=== PATIENT | female | born 1935 ===

== ENCOUNTER 2017-10-27 13:44 | Inpatient (IN) | payer MEDICARE, MEDICAID ==
[2017-10-27 14:32] LABS: BASO # 0.1 K/uL (0.0-0.2); EOS # 0.4 K/uL (0.0-0.7); EOS % 5.8 % (0.0-4.0); HEMOGLOBIN 11.5 g/dL (11.0-16.0); LYMPH # 1.8 K/uL (1.0-4.3); LYMPH % 26.7 % (20.0-40.0); MEAN CELL VOLUME 83.6 fL (81.0-99.0); MEAN CORPUSCULAR HEMOGLOBIN 28.6 pg (27.0-31.0); MEAN CORPUSCULAR HGB CONC 34.3 g/dL (33.0-37.0); MEAN PLATELET VOLUME 7.8 fL (7.2-11.7); MONO # 0.6 K/uL (0.0-0.8); MONO % 9.5 % (0.0-10.0); NEUT # 3.8 K/uL (1.8-7.0); RBC 4.01 Mil/uL (3.80-5.20); RED CELL DISTRIBUTION WIDTH 15.1 % (11.5-14.5); WHITE BLOOD COUNT 6.7 K/uL (4.8-10.8)
[2017-10-27 14:39] LABS: PROTHROMBIN TIME 10.9 SECONDS (9.7-12.2)
[2017-10-27 14:53] LABS: ALB/GLOB RATIO 1.1 (1.0-2.1); ALBUMIN 3.9 g/dL (3.5-5.0); ALT/SGPT 8 U/L (9-52); AST/SGOT 38 U/L (14-36); BLOOD UREA NITROGEN 17 mg/dL (7-17); CALCIUM 9.2 mg/dl (8.6-10.4); GFR AFRICAN-AMERICAN 48; GFR NON-AFRICAN AMERICAN 39
--- NOTE | 2017-10-27 15:01 | RAD ---
PROCEDURE: CHEST RADIOGRAPH, 1 VIEW HISTORY: SOB COMPARISON: None available. FINDINGS: LUNGS: Clear. PLEURA: No pneumothorax or pleural fluid seen. CARDIOVASCULAR: Cardiomegaly. No evidence of acute, significant cardiovascular disease. OSSEOUS STRUCTURES: No significant abnormalities. VISUALIZED UPPER ABDOMEN: Normal. OTHER FINDINGS: None. IMPRESSION: No active pulmonary disease.
[2017-10-27 15:02] LABS: B-TYPE NATRIURETIC PEPTIDE 271 pg/mL (0-900); CK-MB 0.93 ng/mL (0.0-3.38)
[2017-10-27] MEDS ORDERED: Vancomycin 1 GM 1 GM/250 ML BAG IV STA ×2 (15:57→16:23)
[2017-10-27] MEDS ORDERED: Clindamycin 600mg/50ml NS 600 MG/50 ML BAG IVPB ONE (16:16)
[2017-10-27] MEDS ORDERED: Vancomycin 1 gm/NS 200 ml 1 GM/200 ML BAG IVPB STA (17:08)
--- NOTE | 2017-10-27 18:10 | C.PDOC ---
History Of Present Illness 81-year-old female presents to the emergency department complaining of worsening lower extremity swelling, redness, and pain for the past 1 week. Patient is also complaining of shortness of breath. She denies cough or fever, chest pain, nausea/vomiting, abdominal pain, palpitations, or any other associated symptoms. Time Seen by Provider: 10/27/17 13:52 Chief Complaint (Nursing): Lower Extremity Problem/Injury History Per: Patient History/Exam Limitations: no limitations Onset/Duration Of Symptoms: Days (1 week ) Current Symptoms Are (Timing): Still Present Severity: Mild Past Medical History Reviewed: Historical Data, Nursing Documentation, Vital Signs Vital Signs: Last Vital Signs Temp 97.8 F 10/31/17 08:27 Pulse 71 10/31/17 08:27 Resp 20 10/31/17 08:27 BP 138/75 10/31/17 10:31 Pulse Ox 99 11/01/17 13:49 - Medical History PMH: Asthma, HTN, Hypercholesterolemia, Hypothyroidism Family History: States: No Known Family Hx - Social History Hx Alcohol Use: No Hx Substance Use: No Review Of Systems Constitutional: Negative for: Fever, Chills Cardiovascular: Negative for: Chest Pain, Palpitations Respiratory: Positive for: Shortness of Breath (occasional ). Negative for: Cough Gastrointestinal: Negative for: Nausea, Vomiting, Abdominal Pain, Diarrhea Musculoskeletal: Positive for: Other (leg swelling and redness) Neurological: Negative for: Weakness, Numbness Physical Exam - Physical Exam Appears: Well, Non-toxic, No Acute Distress Skin: Normal Color, Warm, Dry, No Rash Head: Atraumatic Oral Mucosa: Moist Neck: Normal, Normal ROM Cardiovascular: Rhythm Regular Respiratory: Normal Breath Sounds, No Rales, No Rhonchi, No Wheezing Gastrointestinal/Abdominal: Normal Exam, Bowel Sounds, Soft, No Tenderness, Other (Obese) Extremity: Normal ROM, Pedal Edema (+2 pitting edema B/L LEs), No Calf Tenderness, Capillary Refill (< 2 sec all digits ), No Deformity, Other ( diffuse erythema to B/L lower extremities) Pulses: Left Dorsalis Pedis: Normal, Right Dorsalis Pedis: Normal Neurological/Psych: Oriented x3, Normal Sensation ED Course And Treatment - Laboratory Results Result Diagrams: 10/30/17 06:50 10/30/17 06:52 O2 Sat by Pulse Oximetry: 99 (RA ) Pulse Ox Interpretation: Normal Progress Note: Bloodwork, CXR ordered and reviewed. Patient given PO Clindamycin (PCN allergic). 16:20--Patient now she has been on two courses of different antibiotics recently, including Clindamycin for the past four days. IV Vancomycin ordered. 18:10--Spoke with hospitalist, who agrees with admission for cellulitis that failed outpatient antibiotics. - Physician Consult Information Physician Contacted: Fredo Taylor Disposition - Disposition Disposition: HOSPITALIZED Disposition Time: 18:14 Condition: STABLE - Clinical Impression Clinical Impression: Cellulitis, leg, Peripheral edema, Failure of outpatient treatment - Scribe Statement The provider has reviewed the documentation as recorded by the Scribe (Baljit Montes) All medical record entries made by the Scribe were at my direction and personally dictated by me. I have reviewed the chart and agree that the record accurately reflects my personal performance of the history, physical exam, medical decision making, and the department course for this patient. I have also personally directed, reviewed, and agree with the discharge instructions and disposition. Decision To Admit - Pt Status Changed To: Hospital Disposition Of: Inpatient - Admit Certification Admit to Inpatient:: After my assessment, the patient will require hospitalization for at least two midnights. This is because of the severity of symptoms shown, intensity of services needed, and/or the medical risk in this patient being treated as an outpatient. - InPatient: Physician Admission Certification: I certify that this patient requires 2 or more midnights of care for the following reason:: see notes - . Bed Request Type: Regular Admitting Physician: Fredo Taylor Patient Diagnosis: Cellulitis, leg, Peripheral edema, Failure of outpatient treatment
[2017-10-27] MEDS ORDERED: Albuterol-Ipratrop 3 mg / 0.5 (3 ml) UD INH STA (19:04)
[2017-10-27] MEDS ORDERED: Albuterol-Ipratrop 3 mg / 0.5 (3 ml) UD ONE (19:31)
--- NOTE | 2017-10-27 20:12 | CP.PCM.HP ---
<DaisyTiffanie Jalen - Last Filed: 10/27/17 20:41> History of Present Illness - History of Present Illness History of Present Illness: CC: bilateral lower extremity swelling and pain HPI: Patient is an 81 year old female with PMHx of asthma, HTN, hypothyroidism, kidney infections, mini stroke, and cellulitis presents today for worsening lower extremity edema, erythema, and pain. Patient says the swelling started 4 weeks ago and has progressively gotten worse. Patient went to [facility] about 1 week ago and was given antibiotics (does not remember the name ) which did not help. Patient went to her PMD, Dr. Hall on October 22 and was given Clindamycin 300mg po TID for 10 days which she said was not helping. Patient's legs were causing her so much pain and because they were not getting any better she came to the ED. Normally patient can ambulate and do most of her ADLs, but gets help from her daughter whom she lives with. Patient says that the swelling and pain in her legs did not change how much she could ambulate. Patient also admits to shortness of breath which she says is chronic for her. Normally she uses her Ventolin inhaler about 3 times per day and her nebulizer treatments twice a day. Patient says she sleeps on 2 pillows at night. Patient denies having a cough. Patient says she is short of breath even at rest. Patient admits to diffuse abdominal pain. Patient usually wears a diaper at home and says she gets kidney infections often. Patient denies any fevers, chills, headaches, chest pain, nausea, vomiting, diarrhea or constipation. PMD: Dr. Felice Hall Allergies: Penicillin PMHx: asthma, HTN, hypothyroidism, kidney infections, TIA, and cellulitis Psurg: b/l knee surgeries in her 20s??, left fourth digit injury at age 60 Famhx: mom of [place] at age 30 Meds: Ventolin inhaler, Nebulizer BID, Synthroid 50mcg po daily, Clopidogrel 75mg, Amlodipine 10mg po daily, Valsartan/ HCTZ 160-12mg po daily, Gabapentin 100mg po TID Social: quit smoking 30 years ago, smoked 5 cigarettes per day for 10 years, denies alcohol. drugs lives with daughter Present on Admission - Present on Admission Any Indicators Present on Admission: No History of DVT/PE: No History of Uncontrolled Diabetes: No Urinary Catheter: No Decubitus Ulcer Present: No Review of Systems - Constitutional Constitutional: absent: Chills, Fever - EENT Eyes: absent: Blurred Vision, Change in Vision Nose/Mouth/Throat: absent: Sore Throat - Cardiovascular Cardiovascular: Dyspnea, Dyspnea on Exertion, Leg Edema, Pedal Edema. absent: Chest Pain, Palpitations - Respiratory Respiratory: Dyspnea, Dyspnea on Exertion. absent: Cough, Wheezing - Gastrointestinal Gastrointestinal: Abdominal Pain. absent: Constipation, Diarrhea, Nausea, Vomiting - Genitourinary Genitourinary: Urinary Incontinence - Musculoskeletal Musculoskeletal: Myalgias. absent: Numbness, Tingling - Integumentary Integumentary: Erythema, Skin Pain Past Patient History - Past Social History Smoking Status: Former Smoker - CARDIAC Hx Hypercholesterolemia: Yes Hx Hypertension: Yes - PULMONARY Hx Asthma: Yes - ENDOCRINE/METABOLIC Hx Hypothyroidism: Yes - PSYCHIATRIC Hx Substance Use: No - SURGICAL HISTORY Other/Comment: bilateral knee sx. left hand sx - ANESTHESIA Hx Anesthesia: Yes Hx Anesthesia Reactions: No Meds Allergies/Adverse Reactions: Allergies Allergy/AdvReac Type Severity Reaction Status Date / Time Penicillins Allergy RASH Verified 10/27/17 14:12 Physical Exam - Constitutional Appears: Non-toxic, No Acute Distress - Head Exam Head Exam: ATRAUMATIC, NORMAL INSPECTION, NORMOCEPHALIC - Eye Exam Eye Exam: EOMI, Normal appearance - ENT Exam ENT Exam: Mucous Membranes Moist - Respiratory Exam Respiratory Exam: Decreased Breath Sounds. absent: NORMAL BREATHING PATTERN ( tachypnea) - Cardiovascular Exam Cardiovascular Exam: REGULAR RHYTHM, RRR - GI/Abdominal Exam GI & Abdominal Exam: Normal Bowel Sounds, Soft, Tenderness (mild diffuse tenderness, no suprapubic tenderness ). absent: Distended - Extremities Exam Extremities exam: Positive for: pedal edema, tenderness Additional comments: b/l non pitting edema up to knee - Back Exam Back exam: absent: CVA tenderness (L), CVA tenderness (R) - Neurological Exam Neurological exam: Alert, Oriented x3 - Psychiatric Exam Psychiatric exam: Normal Affect, Normal Mood - Skin Skin Exam: Erythema, Warm Results - Vital Signs Recent Vital Signs: Last Vital Signs Temp 98.5 F 10/27/17 14:03 Pulse 74 10/27/17 19:21 Resp 16 10/27/17 19:21 BP 110/42 L 10/27/17 19:21 Pulse Ox 100 10/27/17 19:21 - Labs Result Diagrams: 10/27/17 14:28 10/27/17 14:28 Labs: Laboratory Results - last 24 hr 10/27/17 10/27/17 10/27/17 14:28 14:28 14:28 WBC 6.7 RBC 4.01 Hgb 11.5 Hct 33.5 L MCV 83.6 MCH 28.6 MCHC 34.3 RDW 15.1 H Plt Count 242 MPV 7.8 Neut % (Auto) 57.0 Lymph % (Auto) 26.7 [place] % (Auto) 9.5 Eos % (Auto) 5.8 H Baso % (Auto) 1.0 Neut # (Auto) 3.8 Lymph # (Auto) 1.8 [place] # (Auto) 0.6 Eos # (Auto) 0.4 Baso # (Auto) 0.1 PT 10.9 INR 1.0 APTT 33 Sodium 143 Potassium 4.6 Chloride 108 H Carbon Dioxide 25 Anion Gap 15 BUN 17 Creatinine 1.3 H Est GFR ( Amer) 48 Est GFR (Non-Af Amer) 39 Random Glucose 106 H Calcium 9.2 Total Bilirubin 0.7 AST 38 H ALT 8 L Alkaline Phosphatase 105 Total Creatine Kinase 74 CK-MB (Mass) 0.93 Troponin I < 0.0120 NT-Pro-B Natriuret Pep 271 Total Protein 7.3 Albumin 3.9 Globulin 3.4 Albumin/Globulin Ratio 1.1 Assessment & Plan - Assessment and Plan (Free Text) Assessment: 1. B/L LE cellulitis -Vanco 1gm q12h, trough 30min before thurs morning dose -Clinda 600mg ivpb q8h -Florastor po BID -outline cellulitis on legs -no SCDs until dvt ruled out -ID consult, Dr. Maher, help appreciated 2. Shortness of breath -EKG -Echo-- cardiomegaly on chest xray -Duonebs q6h prn -ABG -D- dimer 3. HTN -hypotensive on admission -hold home meds 4. Hypothyroidism -continue Synthroid 50mcg po daily -free T4 + TSH 5. ELISE on CKD -UA + UC -renally dose meds 6. Hx TIA -continue Clopidogrel 75mg po daily 7. Asthma -not in an acute exacerbation -portable cxray: no active disease, poor inspiratory effort -Duonebs q6h prn 8. Hx kidney infections - No CVA tenderness -UA + UC 9. Morbid Obesity -TSH, Free T4 -Lipid panel -HgA1c 10. Prophylaxis -Hold SCDs -Heparin 5000u sc q12h -PT/OT -no gi propylaxis indicated -Heart healthy low sodium diet <Lashon Duong V - Last Filed: 10/28/17 07:23> Results - Vital Signs Recent Vital Signs: Last Vital Signs Temp 97.6 F 10/28/17 04:00 Pulse 85 10/28/17 04:31 Resp 20 10/28/17 04:00 BP 129/82 10/28/17 04:00 Pulse Ox 96 10/28/17 04:00 - Labs Result Diagrams: 10/27/17 14:28 10/27/17 14:28 Labs: Laboratory Results - last 24 hr 10/27/17 10/27/17 10/27/17 14:28 14:28 14:28 WBC 6.7 RBC 4.01 Hgb 11.5 Hct 33.5 L MCV 83.6 MCH 28.6 MCHC 34.3 RDW 15.1 H Plt Count 242 MPV 7.8 Neut % (Auto) 57.0 Lymph % (Auto) 26.7 [place] % (Auto) 9.5 Eos % (Auto) 5.8 H Baso % (Auto) 1.0 Neut # (Auto) 3.8 Lymph # (Auto) 1.8 [place] # (Auto) 0.6 Eos # (Auto) 0.4 Baso # (Auto) 0.1 PT 10.9 INR 1.0 APTT 33 D-Dimer, Quantitative Puncture Site pCO2 pO2 HCO3 ABG pH ABG Total CO2 ABG O2 Saturation ABG Base Excess Mohsen Test ABG Potassium Glucose Lactate Sodium 143 Potassium 4.6 Chloride 108 H Carbon Dioxide 25 Anion Gap 15 BUN 17 Creatinine 1.3 H Est GFR ( Amer) 48 Est GFR (Non-Af Amer) 39 Random Glucose 106 H Calcium 9.2 Total Bilirubin 0.7 AST 38 H ALT 8 L Alkaline Phosphatase 105 Total Creatine Kinase 74 CK-MB (Mass) 0.93 Troponin I < 0.0120 NT-Pro-B Natriuret Pep 271 Total Protein 7.3 Albumin 3.9 Globulin 3.4 Albumin/Globulin Ratio 1.1 Procalcitonin Arterial Blood Potassium Urine Color Urine Clarity Urine pH Ur Specific [place] Urine Protein Urine Glucose (UA) Urine Ketones Urine Blood Urine Nitrate Urine Bilirubin Urine Urobilinogen Ur Leukocyte Esterase Urine WBC (Auto) Urine RBC (Auto) Ur Squamous Epith Cells Urine Bacteria Hyaline Casts 10/27/17 10/27/17 10/27/17 19:31 20:44 20:45 WBC RBC Hgb Hct MCV MCH MCHC RDW Plt Count MPV Neut % (Auto) Lymph % (Auto) [place] % (Auto) Eos % (Auto) Baso % (Auto) Neut # (Auto) Lymph # (Auto) [place] # (Auto) Eos # (Auto) Baso # (Auto) PT INR APTT D-Dimer, Quantitative Puncture Site Rradial pCO2 35 pO2 69 L HCO3 23.8 ABG pH 7.42 ABG Total CO2 23.8 ABG O2 Saturation 96.8 ABG Base Excess -1.3 Mohsen Test Pos ABG Potassium 3.9 Glucose 100 Lactate 0.9 Sodium 143.0 Potassium Chloride 117.0 H Carbon Dioxide Anion Gap BUN Creatinine Est GFR ( Amer) Est GFR (Non-Af Amer) Random Glucose Calcium Total Bilirubin AST ALT Alkaline Phosphatase Total Creatine Kinase CK-MB (Mass) Troponin I NT-Pro-B Natriuret Pep Total Protein Albumin Globulin Albumin/Globulin Ratio Procalcitonin < 0.05 L Arterial Blood Potassium 3.9 Urine Color Yellow Urine Clarity Clear Urine pH 6.0 Ur Specific [place] 1.012 Urine Protein Negative Urine Glucose (UA) Normal Urine Ketones Negative Urine Blood Negative Urine Nitrate Positive H Urine Bilirubin Negative Urine Urobilinogen Normal Ur Leukocyte Esterase Trace Urine WBC (Auto) 12 H Urine RBC (Auto) < 1 Ur Squamous Epith Cells 1 Urine Bacteria Few H Hyaline Casts 3-5 H 10/27/17 20:55 WBC RBC Hgb Hct MCV MCH MCHC RDW Plt Count MPV Neut % (Auto) Lymph % (Auto) [place] % (Auto) Eos % (Auto) Baso % (Auto) Neut # (Auto) Lymph # (Auto) [place] # (Auto) Eos # (Auto) Baso # (Auto) PT INR APTT D-Dimer, Quantitative 719 H Puncture Site pCO2 pO2 HCO3 ABG pH ABG Total CO2 ABG O2 Saturation ABG Base Excess Mohsen Test ABG Potassium Glucose Lactate Sodium Potassium Chloride Carbon Dioxide Anion Gap BUN Creatinine Est GFR ( Amer) Est GFR (Non-Af Amer) Random Glucose Calcium Total Bilirubin AST ALT Alkaline Phosphatase Total Creatine Kinase CK-MB (Mass) Troponin I NT-Pro-B Natriuret Pep Total Protein Albumin Globulin Albumin/Globulin Ratio Procalcitonin Arterial Blood Potassium Urine Color Urine Clarity Urine pH Ur Specific [place] Urine Protein Urine Glucose (UA) Urine Ketones Urine Blood Urine Nitrate Urine Bilirubin Urine Urobilinogen Ur Leukocyte Esterase Urine WBC (Auto) Urine RBC (Auto) Ur Squamous Epith Cells Urine Bacteria Hyaline Casts Attending/Attestation - Attestation I have personally seen and examined this patient.: Yes I have fully participated in the care of the patient.: Yes I have reviewed all pertinent clinical information: Yes Notes (Text): Patient seen, examined, and case discussed with day-time resident. patient seen on 10/27/17 at 6:45PM in Bed 6 ED. Admitting orders and assessment and plan discussed with resident at time of admission. Assessment/Plan 1. B/L LE cellulitis * In the ED, Patient received first dose of Vancomycin and Clindamycin. * Start Vanco 1gm q12h, trough 30min before thurs morning dose * Start Clindamycin 600mg ivpb q8h * Start Florastor po BID * outline cellulitis on legs * Will hold SCDs until dvt ruled out * Will consult ID Dr. Maher, help appreciated 2. Shortness of breath * Will order for EKG; Troponin negative. Probnp not elevated * Will order for Echocardiogram reason:cardiomegaly on chest xray * Duonebs q6h prn shortness of breathe; given stat dose of Duoneb in ED * Order for ABG * Order for D-dimer if positive will order for V/Q scan; patient has acute on chronic kidney disease will not order Ct angio to prevent contrast induced nephropathy 3. HTN * Patient is borderline hypotensive on admission * Will hold home meds 4. Hypothyroidism * continue Synthroid 50mcg po daily * free T4 + TSH in AM 5. Acute on Chronic Kidney Disease * Will order UA + Urine culture * Will renally dose meds 6. Hx TIA * continue Clopidogrel 75mg po daily 7. Hx of Asthma * not in an acute exacerbation * portable cxray: no active disease, poor inspiratory effort * Duonebs q6h prn 8. Hx of kidney infections; hx of urinary incontinence * Patient wears diapers. There is no infection in the intrigenous folds on my exam. negative suprapubic tendernes, negative b/l CVA tenderness * Will check UA + UC 9. Morbid Obesity * Will check TSH, Free T4, Lipid panel, HgA1c 10. Prophylaxis * Hold SCDs until DVT is ruled out * Heparin 5000u sc q12h * PT/OT * no gi propylaxis indicated * Heart healthy low sodium diet
[2017-10-27 20:52] LABS: ABG ALLEN TEST POS; ARTERIAL BLOOD GAS HCO3 23.8 mmol/L (21-28); ARTERIAL BLOOD GAS O2 SAT 96.8 % (95-98); ARTERIAL BLOOD GAS PCO2 35 mm/Hg (35-45); ARTERIAL BLOOD GAS PH 7.42 (7.35-7.45); ARTERIAL BLOOD GAS PO2 69 mm/Hg (80-100); ARTERIAL BLOOD GAS TCO2 23.8 mmol/L (22-28)
[2017-10-27 20:53] LABS: SQUAMOUS EPITHIAL 1 /hpf (0-5); URINE BACTERIA FEW (<OCC); URINE BILIRUBIN NEGATIVE (NEGATIVE); URINE BLOOD NEGATIVE (NEGATIVE); URINE CLARITY Clear (Clear); URINE COLOR Yellow (YELLOW); URINE GLUCOSE (UA) NORMAL (Normal); URINE LEUKOCYTE ESTERASE TRACE Leu/uL (Negative); URINE PROTEIN NEGATIVE (NEGATIVE); URINE UROBILINOGEN NORMAL mg/dL (0.2-1.0)
[2017-10-28] MEDS: Albuterol-Ipratrop 3 mg / 0.5 (3 ml) UD INH PRN ×2 (00:19→07:22)
--- NOTE | 2017-10-28 04:34 | NM ---
EXAM: NM Lung Perfusion and Ventilation Scan CLINICAL HISTORY: 81 years old, female; Signs and symptoms; Other: Le elevated d dimer; Additional info: Le swelling, elevated d dimer TECHNIQUE: Nuclear Medicine ventilation and perfusion images of the lungs were obtained in multiple projections following inhalation of 10.3 mCi of Xenon-133 gas and injection of 4.0 mCi of Tc99m MAA. COMPARISON: No relevant prior studies available. FINDINGS: Ventilation: No defects. Perfusion: Multiple small and moderate peripheral defects. IMPRESSION: 1. High probability for pulmonary embolism. Consider CTA.
[2017-10-28] MEDS ORDERED: Heparin25000 units/250ml 1/2NS 25,000 UNITS/250 ML BAG IV PRN (05:12)
[2017-10-28] MEDS: Heparin25000 units/250ml 1/2NS 25,000 UNITS/250 ML BAG IV PRN ×2 (06:44→22:58)
[2017-10-28 07:37] LABS: BASO # 0.1 K/uL (0.0-0.2); EOS # 0.4 K/uL (0.0-0.7); EOS % 6.9 % (0.0-4.0); LYMPH # 1.9 K/uL (1.0-4.3); LYMPH % 30.6 % (20.0-40.0); MEAN CELL VOLUME 84.3 fL (81.0-99.0); MEAN CORPUSCULAR HEMOGLOBIN 28.7 pg (27.0-31.0); MEAN PLATELET VOLUME 8.3 fL (7.2-11.7); MONO # 0.5 K/uL (0.0-0.8); MONO % 8.8 % (0.0-10.0); NEUT # 3.2 K/uL (1.8-7.0); NEUT % 52.7 % (50.0-75.0); NRBC % 0.1 % (0.0-2.0); RBC 3.84 Mil/uL (3.80-5.20); RED CELL DISTRIBUTION WIDTH 15.3 % (11.5-14.5); WHITE BLOOD COUNT 6.2 K/uL (4.8-10.8)
--- NOTE | 2017-10-28 09:18 | RAD ---
HISTORY: shortness of breath COMPARISON: 10/27/2017 TECHNIQUE: Chest PA and lateral FINDINGS: LUNGS: No active pulmonary disease. PLEURA: No significant pleural effusion identified. No pneumothorax apparent. CARDIOVASCULAR: Normal heart size. Large hiatal hernia with air-fluid level. OSSEOUS STRUCTURES: No significant abnormalities. VISUALIZED UPPER ABDOMEN: Normal. OTHER FINDINGS: None. IMPRESSION: No acute infiltrate. Large hiatal hernia.
[2017-10-28] MEDS ORDERED: Vancomycin 1 gm/NS 200 ml 1 GM/200 ML BAG IVPB SCH (10:00)
[2017-10-28] MEDS ORDERED: Levothyroxine 50 MCG TAB PO SCH (10:00)
[2017-10-28 11:09] LABS: CALCIUM 9.3 mg/dl (8.6-10.4)
[2017-10-28 11:12] LABS: ALB/GLOB RATIO 1.2 (1.0-2.1); ALBUMIN 3.4 g/dL (3.5-5.0)
[2017-10-28] MEDS: Saccharomyces Boulardi 250 mg Cap PO SCH ×2 (11:25→17:56)
--- NOTE | 2017-10-28 13:24 | CP.PCM.PN ---
<Tiffanie Villa - Last Filed: 10/28/17 14:28> Subjective - Date & Time of Evaluation Date of Evaluation: 10/28/17 Time of Evaluation: 07:00 - Subjective Subjective: PGY1- Progress note Patient seen and examined at bedside and in no acute distress. Patient says she is still short of breath, but less so than yesterday. Patient says she still has bilateral lower extremity pain. Patient denies chest pain, palpitations, abdominal pain, nausea, vomiting, constipation, or diarrhea. Objective - Vital Signs/Intake and Output Vital Signs (last 24 hours): Temp Pulse Resp BP Pulse Ox 99.8 F H 74 20 122/84 100 10/28/17 08:30 10/28/17 12:24 10/28/17 08:30 10/28/17 08:30 10/28/17 08:30 Intake and Output: 10/28/17 10/28/17 06:59 18:59 Intake Total 105 Balance 105 - Medications Medications: Current Medications Albuterol/Ipratropium (Duoneb 3 Mg/0.5 Mg (3 Ml) Ud) 3 ml INH RQ6 PRN PRN Reason: Shortness of Breath Last Admin: 10/28/17 07:22 Dose: 3 ml Amlodipine Besylate (Norvasc) 10 mg PO DAILY [facility] Last Admin: 10/28/17 11:24 Dose: 10 mg Clopidogrel Bisulfate (Plavix) 75 mg PO DAILY [facility] Last Admin: 10/28/17 11:24 Dose: 75 mg Gabapentin (Neurontin) 100 mg PO TID [facility] Last Admin: 10/28/17 11:25 Dose: 100 mg Vancomycin/Sodium Chloride (Vancomycin 1 Gm/Ns 200 Ml) 1 gm in 200 mls @ 133.333 mls/hr IVPB Q12H MAR PRN Reason: Protocol Last Admin: 10/28/17 11:43 Dose: 133.333 mls/hr Clindamycin Phosphate 600 mg/ (Sodium Chloride) 54 mls @ 100 mls/hr IVPB Q8H MAR PRN Reason: Protocol Last Admin: 10/28/17 11:23 Dose: 100 mls/hr Heparin Sodium/Sodium Chloride (Heparin 81485 Units/250ml 1/2 Normal Saline) 25 ,000 units in 250 mls @ 19.595 mls/hr IV .[id number] PRN; Protocol; 18 UNITS/KG/HR PRN Reason: PROTOCOL Last Admin: 10/28/17 06:44 Dose: 18 units/kg/hr, 19.595 mls/hr Levothyroxine Sodium (Synthroid) 50 mcg PO 0630 [facility] Pneumococcal Polyvalent Vaccine (Pneumovax 23 Vaccine) 0.5 ml IM .ONCE ONE Stop: 10/29/17 14:01 Saccharomyces Boulardii (Florastor) 250 mg PO BID [facility] Last Admin: 10/28/17 11:25 Dose: 250 mg - Labs Labs: 10/28/17 07:28 10/28/17 07:28 PT 10.9 SECONDS (9.7-12.2) 10/27/17 14:28 INR 1.0 10/27/17 14:28 APTT 33 SECONDS (21-34) 10/27/17 14:28 - Additional Findings Additional findings: - Constitutional Appears: Non-toxic, No Acute Distress - Head Exam Head Exam: ATRAUMATIC, NORMAL INSPECTION, NORMOCEPHALIC - Eye Exam Eye Exam: EOMI, Normal appearance - ENT Exam ENT Exam: Mucous Membranes Moist - Respiratory Exam Respiratory Exam: Decreased Breath Sounds. absent: NORMAL BREATHING PATTERN ( tachypnea) - Cardiovascular Exam Cardiovascular Exam: REGULAR RHYTHM, RRR - GI/Abdominal Exam GI & Abdominal Exam: Normal Bowel Sounds, Soft, Tenderness (mild diffuse tenderness, no suprapubic tenderness ). absent: Distended - Extremities Exam Extremities exam: Positive for: pedal edema, tenderness Additional comments: b/l non pitting edema and erythema up to knee - Back Exam Back exam: absent: CVA tenderness (L), CVA tenderness (R) - Neurological Exam Neurological exam: Alert, Oriented x3 - Psychiatric Exam Psychiatric exam: Normal Affect, Normal Mood - Skin Skin Exam: Erythema, Warm Assessment and Plan - Assessment and Plan (Free Text) Assessment: Pulmonary Embolism V/Q scan: high probability for PE Heparin drip monitor PTT Pulmonology consulted, Dr. Tian, help appreciated B/L LE cellulitis -Vanco 1gm q12h, trough 30min before thurs morning dose -Clinda 600mg ivpb q8h -Florastor po BID -outlined cellulitis on legs -no SCDs until dvt ruled out -ID consult, Dr. Gunnar, help appreciated Shortness of breath 2/2 PE -EKG: NRS -Echo ordered-- cardiomegaly seen on chest xray -Duonebs q6h prn -ABG: pH:7.42, pCO2: 35, pO2: 69 -D- dimer: 719 HTN -hypotensive on admission -hold home meds Hypothyroidism -continue Synthroid 50mcg po daily -free T4: 1.01 -TSH: 7.73 CKD -GFR 43, (spoke to staff at [facility] office, in June GFR 29, BUN 8, Cr: 1.64) -UA: positive nitrates -renally dose meds UTI UA: positive nitrates, 12wbc, few bacteria, 3-5 hyaline casts -on antibiotics for LE cellulitis -f/u Urine Culture Hx TIA -continue Clopidogrel 75mg po daily Asthma -not in an acute exacerbation -portable cxray: no active disease, poor inspiratory effort -Duonebs q6h prn Hx kidney infections - No CVA tenderness - UA: positive nitrates, 12wbc, few bacteria, 3-5 hyaline casts - f/u UC Morbid Obesity -TSH: 7.73, Free T4: 1.23 -Lipid panel: Triglycerides 111, Cholesterol 164, LDL 94, HDL 54 -HgA1C: 5.7 Chronic Low back pain -continue home medication Gabapentin 100mg po TID Prophylaxis -Hold SCDs -Heparin drip -PT/OT -no gi propylaxis indicated -Heart healthy low sodium diet <Lashon Duong V - Last Filed: 10/28/17 17:17> Objective - Vital Signs/Intake and Output Vital Signs (last 24 hours): Temp Pulse Resp BP Pulse Ox 99.8 F H 74 20 122/84 100 10/28/17 08:30 10/28/17 12:24 10/28/17 08:30 10/28/17 08:30 10/28/17 08:30 Intake and Output: 10/28/17 10/28/17 06:59 18:59 Intake Total 702.3 Balance 702.3 - Medications Medications: Current Medications Albuterol/Ipratropium (Duoneb 3 Mg/0.5 Mg (3 Ml) Ud) 3 ml INH RQ6 PRN PRN Reason: Shortness of Breath Last Admin: 10/28/17 07:22 Dose: 3 ml Amlodipine Besylate (Norvasc) 10 mg PO DAILY [facility] Last Admin: 10/28/17 11:24 Dose: 10 mg Clopidogrel Bisulfate (Plavix) 75 mg PO DAILY [facility] Last Admin: 10/28/17 11:24 Dose: 75 mg Gabapentin (Neurontin) 100 mg PO TID [facility] Last Admin: 10/28/17 13:23 Dose: 100 mg Vancomycin/Sodium Chloride (Vancomycin 1 Gm/Ns 200 Ml) 1 gm in 200 mls @ 133.333 mls/hr IVPB Q12H [facility] PRN Reason: Protocol Last Admin: 10/28/17 11:43 Dose: 133.333 mls/hr Clindamycin Phosphate 600 mg/ (Sodium Chloride) 54 mls @ 100 mls/hr IVPB Q8H [facility] PRN Reason: Protocol Last Admin: 10/28/17 11:23 Dose: 100 mls/hr Heparin Sodium/Sodium Chloride (Heparin 67254 Units/250ml 1/2 Normal Saline) 25 ,000 units in 250 mls @ 19.595 mls/hr IV .[id number] PRN; Protocol; 18 UNITS/KG/HR PRN Reason: PROTOCOL Last Titration: 10/28/17 14:40 Dose: 0 units/kg/hr, 0 mls/hr Levothyroxine Sodium (Synthroid) 50 mcg PO 0630 [facility] Methylprednisolone (Solu-Medrol) 40 mg IVP Q8H [facility] Pneumococcal Polyvalent Vaccine (Pneumovax 23 Vaccine) 0.5 ml IM .ONCE ONE Stop: 10/29/17 14:01 Saccharomyces Boulardii (Florastor) 250 mg PO BID [facility] Last Admin: 10/28/17 11:25 Dose: 250 mg - Labs Labs: 10/28/17 07:28 10/28/17 07:28 PT 11.8 SECONDS (9.7-12.2) 10/28/17 14:06 INR 1.1 10/28/17 14:06 APTT > 400 SECONDS (21-34) H* D 10/28/17 14:06 Attending/Attestation - Attestation I have personally seen and examined this patient.: Yes I have fully participated in the care of the patient.: Yes I have reviewed all pertinent clinical information, including history, physical exam and plan: Yes Notes (Text): Patient seen and examined with resident at bedside this morning. Patient reports she is feeling better. patient has now 2 peripheral IV access provided by nursing staff help appreciated. Patient found to have high probability of PE per V/Q scan this AM. Patient started on heparin drip. Patient's PTT supratherapeutic. Will hold heparin for 1 -2 hours and repeat PTT prior to restarting heparin drip. Patient reports she is short of breathe, but she is not tachypnic at bedside. patient left lower extremity swelling and erythema have improved; right lower lower extremity remains erythematous. Patient is on IV abx to cover for cellulitis and is awaiting venous doppler to rule out dvt. Discussed case with pulmonary, likely LEENA, COPD, and pulmonary embolus. Recommend for IV steroids, nebulizer, and CPAP at 10 at night. Assessment/Plan 1. B/L LE cellulitis * In the ED, Patient received first dose of Vancomycin and Clindamycin. * Start Vanco 1gm q12h, trough 30min before thurs morning dose * Start Clindamycin 600mg ivpb q8h * Start Florastor po BID * outline cellulitis on legs-->left lower extremity improving * Will hold SCDs until dvt ruled out * f/u with consult ID Dr. Maher, help appreciated * pending venous dopplers 2. Shortness of breath COPD Obstructive Sleep Apnea Pulmonary Embolus * Transfer to telemetry for elevated d-dimer; and PE on V/Q scan * Pulmonary (Dr. Tian) on board-->help appreciated * Recommend for Solumedrol 40mg IV Q8H, nebulizers and CPAP at 10 cm at night * EKG; Troponin negative. Probnp not elevated * f/u Echocardiogram reason:cardiomegaly on chest xray * Duonebs q6h prn shortness of breathe; given stat dose of Duoneb in ED * Patient is hypoxic on ABG. * V/Q shows high probability of PE * Patient is on heparin drip to treat for PE * pending venous dopplers 3. HTN * Patient is borderline hypotensive on admission * If blood pressure continues to improve, will restart blood pressure medications 4. Hypothyroidism * continue Synthroid 50mcg po daily * Elevated TSH, normal Free T4 5. Acute on Chronic Kidney Disease * Jun 2017-->GFR: 29 and creatinine 1.6 * Will renally dose meds 6. Hx TIA * continue Clopidogrel 75mg po daily 7. Hx of Asthma/COPD * portable cxray: no active disease, poor inspiratory effort * Duonebs q6h prn * Solumedrol 40mg IV Q 8H 8. Hx of kidney infections; hx of urinary incontinence * Patient wears diapers. There is no infection in the intrigenous folds on my exam. negative suprapubic tendernes, negative b/l CVA tenderness * Patient is currently on IV Clindamycin and IV Vancomycin * Awaiting urinary culture * UA shows pyuria, nitrate, and bacteria 9.Impaired glucose intolerance * hgba1c:5.7-->will need diet and exercise modifcations 10. Prophylaxis * Hold SCDs until DVT is ruled out * Heparin 5000u sc q12h * PT/OT * Will start protonix for GI ppx * Heart healthy low sodium diet
[2017-10-28 14:41] LABS: INR 1.1; PROTHROMBIN TIME 11.8 SECONDS (9.7-12.2)
[2017-10-28 14:44] LABS: PARTIAL THROMBOPLASTIN TIME > 400 SECONDS (21-34)
--- NOTE | 2017-10-28 15:19 | CP.PCM.CON ---
History of Present Illness - History of Present Illness History of Present Illness: reason for consultation: shortness of breath and positive VQ scan 81-year-old white female with history of asthma, hypothyroidism, cellulitis, hypertension was admitted with lower extremity swelling, erythema and pain. Patient was treated with antibiotics outpatient without any relief. Patient also complaining of shortness of breath and has been using rescue inhaler more frequently. Patient states that she uses CPAP at night. VQ scan done high probability for pulmonary embolism Allergies: Penicillin PMHx: asthma, HTN, hypothyroidism, kidney infections, TIA, and cellulitis Psurg: b/l knee surgeries in her 20s??, left fourth digit injury at age 60 Famhx: mom of [place] at age 30 Meds: Ventolin inhaler, Nebulizer BID, Synthroid 50mcg po daily, Clopidogrel 75mg, Amlodipine 10mg po daily, Valsartan/ HCTZ 160-12mg po daily, Gabapentin 100mg po TID Social: quit smoking 30 years ago, smoked 5 cigarettes per day for 10 years, denies alcohol. drugs lives with daughter Review of Systems - Review of Systems All systems: reviewed and no additional remarkable complaints except Past Patient History - Past Medical History & Family History Past Medical History?: Yes - Past Social History Smoking Status: Former Smoker - CARDIAC Hx Cardiac Disorders: Yes Hx Hypercholesterolemia: Yes Hx Hypertension: Yes - PULMONARY Hx Respiratory Disorders: Yes Hx Asthma: Yes - NEUROLOGICAL Hx Neurological Disorder: No - HEENT Hx HEENT Problems: No - RENAL Hx Chronic Kidney Disease: No - ENDOCRINE/METABOLIC Hx Endocrine Disorders: Yes Hx Hypothyroidism: Yes - HEMATOLOGICAL/ONCOLOGICAL Hx Blood Disorders: No - INTEGUMENTARY Hx Dermatological Problems: No - MUSCULOSKELETAL/RHEUMATOLOGICAL Hx Musculoskeletal Disorders: No Hx Falls: No - GASTROINTESTINAL Hx Gastrointestinal Disorders: No - GENITOURINARY/GYNECOLOGICAL Hx Genitourinary Disorders: No - PSYCHIATRIC Hx Psychophysiologic Disorder: No Hx Substance Use: No - SURGICAL HISTORY Hx Surgeries: Yes Other/Comment: bilateral knee sx. left hand sx - ANESTHESIA Hx Anesthesia: Yes Hx Anesthesia Reactions: No Hx Malignant Hyperthermia: No Has any member of the family had a problem w/ anesthesia?: No Meds Allergies/Adverse Reactions: Allergies Allergy/AdvReac Type Severity Reaction Status Date / Time Penicillins Allergy RASH Verified 10/27/17 14:12 - Medications Medications: Current Medications Albuterol/Ipratropium (Duoneb 3 Mg/0.5 Mg (3 Ml) Ud) 3 ml INH RQ6 PRN PRN Reason: Shortness of Breath Last Admin: 10/28/17 07:22 Dose: 3 ml Amlodipine Besylate (Norvasc) 10 mg PO DAILY [facility] Last Admin: 10/28/17 11:24 Dose: 10 mg Clopidogrel Bisulfate (Plavix) 75 mg PO DAILY [facility] Last Admin: 10/28/17 11:24 Dose: 75 mg Gabapentin (Neurontin) 100 mg PO TID [facility] Last Admin: 10/28/17 13:23 Dose: 100 mg Vancomycin/Sodium Chloride (Vancomycin 1 Gm/Ns 200 Ml) 1 gm in 200 mls @ 133.333 mls/hr IVPB Q12H [facility] PRN Reason: Protocol Last Admin: 10/28/17 11:43 Dose: 133.333 mls/hr Clindamycin Phosphate 600 mg/ (Sodium Chloride) 54 mls @ 100 mls/hr IVPB Q8H [facility] PRN Reason: Protocol Last Admin: 10/28/17 11:23 Dose: 100 mls/hr Heparin Sodium/Sodium Chloride (Heparin 33091 Units/250ml 1/2 Normal Saline) 25 ,000 units in 250 mls @ 19.595 mls/hr IV .[id number] PRN; Protocol; 18 UNITS/KG/HR PRN Reason: PROTOCOL Last Titration: 10/28/17 14:40 Dose: 0 units/kg/hr, 0 mls/hr Levothyroxine Sodium (Synthroid) 50 mcg PO 0630 [facility] Pneumococcal Polyvalent Vaccine (Pneumovax 23 Vaccine) 0.5 ml IM .ONCE ONE Stop: 10/29/17 14:01 Saccharomyces Boulardii (Florastor) 250 mg PO BID [facility] Last Admin: 10/28/17 11:25 Dose: 250 mg Physical Exam - Head Exam Head Exam: ATRAUMATIC, NORMOCEPHALIC - Eye Exam Eye Exam: Normal appearance - ENT Exam ENT Exam: Mucous Membranes Moist - Neck Exam Neck exam: Positive for: Normal Inspection - Respiratory Exam Respiratory Exam: Rhonchi - Cardiovascular Exam Cardiovascular Exam: REGULAR RHYTHM - GI/Abdominal Exam GI & Abdominal Exam: Normal Bowel Sounds - Extremities Exam Extremities exam: Positive for: pedal edema, tenderness - Neurological Exam Neurological exam: Alert, Oriented x3 Results - Vital Signs Recent Vital Signs: Last Vital Signs Temp 99.8 F H 10/28/17 08:30 Pulse 74 10/28/17 12:24 Resp 20 10/28/17 08:30 BP 122/84 10/28/17 08:30 Pulse Ox 100 10/28/17 08:30 - Labs Result Diagrams: 10/28/17 07:28 10/28/17 07:28 Labs: Laboratory Results - last 24 hr 10/27/17 10/27/17 10/27/17 19:31 20:44 20:45 WBC RBC Hgb Hct MCV MCH MCHC RDW Plt Count MPV Neut % (Auto) Lymph % (Auto) [place] % (Auto) Eos % (Auto) Baso % (Auto) Neut # (Auto) Lymph # (Auto) [place] # (Auto) Eos # (Auto) Baso # (Auto) PT INR APTT D-Dimer, Quantitative Puncture Site Rradial pCO2 35 pO2 69 L HCO3 23.8 ABG pH 7.42 ABG Total CO2 23.8 ABG O2 Saturation 96.8 ABG Base Excess -1.3 Mohsen Test Pos ABG Potassium 3.9 Sodium 143.0 Chloride 117.0 H Glucose 100 Lactate 0.9 Potassium Carbon Dioxide Anion Gap BUN Creatinine Est GFR ( Amer) Est GFR (Non-Af Amer) Random Glucose Hemoglobin A1c Calcium Phosphorus Magnesium Total Bilirubin AST ALT Alkaline Phosphatase Total Protein Albumin Globulin Albumin/Globulin Ratio Triglycerides Cholesterol LDL Cholesterol Direct HDL Cholesterol Procalcitonin < 0.05 L Free T4 TSH 3rd Generation Arterial Blood Potassium 3.9 Urine Color Yellow Urine Clarity Clear Urine pH 6.0 Ur Specific [place] 1.012 Urine Protein Negative Urine Glucose (UA) Normal Urine Ketones Negative Urine Blood Negative Urine Nitrate Positive H Urine Bilirubin Negative Urine Urobilinogen Normal Ur Leukocyte Esterase Trace Urine WBC (Auto) 12 H Urine RBC (Auto) < 1 Ur Squamous Epith Cells 1 Urine Bacteria Few H Hyaline Casts 3-5 H 10/27/17 10/28/17 10/28/17 20:55 07:28 07:28 WBC RBC Hgb Hct MCV MCH MCHC RDW Plt Count MPV Neut % (Auto) Lymph % (Auto) [place] % (Auto) Eos % (Auto) Baso % (Auto) Neut # (Auto) Lymph # (Auto) [place] # (Auto) Eos # (Auto) Baso # (Auto) PT INR APTT D-Dimer, Quantitative 719 H Puncture Site pCO2 pO2 HCO3 ABG pH ABG Total CO2 ABG O2 Saturation ABG Base Excess Mohsen Test ABG Potassium Sodium 144 Chloride 113 H Glucose Lactate Potassium 5.2 Carbon Dioxide 20 L Anion Gap 16 BUN 14 Creatinine 1.2 Est GFR ( Amer) 52 Est GFR (Non-Af Amer) 43 Random Glucose 74 Hemoglobin A1c 5.7 Calcium 9.3 Phosphorus 4.3 Magnesium 2.3 Total Bilirubin 0.9 AST 34 ALT 12 Alkaline Phosphatase 86 Total Protein 6.4 Albumin 3.4 L Globulin 3.0 Albumin/Globulin Ratio 1.2 Triglycerides 111 Cholesterol 164 LDL Cholesterol Direct 94 HDL Cholesterol 54 Procalcitonin Free T4 TSH 3rd Generation 7.73 H Arterial Blood Potassium Urine Color Urine Clarity Urine pH Ur Specific [place] Urine Protein Urine Glucose (UA) Urine Ketones Urine Blood Urine Nitrate Urine Bilirubin Urine Urobilinogen Ur Leukocyte Esterase Urine WBC (Auto) Urine RBC (Auto) Ur Squamous Epith Cells Urine Bacteria Hyaline Casts 10/28/17 10/28/17 10/28/17 07:28 08:01 14:06 WBC 6.2 RBC 3.84 Hgb 11.0 Hct 32.3 L MCV 84.3 MCH 28.7 MCHC 34.0 RDW 15.3 H Plt Count 217 MPV 8.3 Neut % (Auto) 52.7 Lymph % (Auto) 30.6 [place] % (Auto) 8.8 Eos % (Auto) 6.9 H Baso % (Auto) 1.0 Neut # (Auto) 3.2 Lymph # (Auto) 1.9 [place] # (Auto) 0.5 Eos # (Auto) 0.4 Baso # (Auto) 0.1 PT 11.8 INR 1.1 APTT > 400 H* D D-Dimer, Quantitative Puncture Site pCO2 pO2 HCO3 ABG pH ABG Total CO2 ABG O2 Saturation ABG Base Excess Mohsen Test ABG Potassium Sodium Chloride Glucose Lactate Potassium Carbon Dioxide Anion Gap BUN Creatinine Est GFR ( Amer) Est GFR (Non-Af Amer) Random Glucose Hemoglobin A1c Calcium Phosphorus Magnesium Total Bilirubin AST ALT Alkaline Phosphatase Total Protein Albumin Globulin Albumin/Globulin Ratio Triglycerides Cholesterol LDL Cholesterol Direct HDL Cholesterol Procalcitonin Free T4 1.23 TSH 3rd Generation Arterial Blood Potassium Urine Color Urine Clarity Urine pH Ur Specific [place] Urine Protein Urine Glucose (UA) Urine Ketones Urine Blood Urine Nitrate Urine Bilirubin Urine Urobilinogen Ur Leukocyte Esterase Urine WBC (Auto) Urine RBC (Auto) Ur Squamous Epith Cells Urine Bacteria Hyaline Casts Assessment & Plan (1) Pulmonary embolism Status: Acute Comment: cont heparin drip. venous Doppler of her lower extremities. A CPAP at night. Lasix (2) COPD exacerbation Status: Acute Comment: IV steroids and nebulizer treatment
[2017-10-28] MEDS: MethylPREDNISolone 40 mg Vial IVP SCH (17:15)
--- NOTE | 2017-10-28 18:44 | CARD ---
APPROVED REPORT EXAM: Two-dimensional and M-mode echocardiogram with Doppler and color Doppler. Other Information Quality : TDSRhythm : INDICATION CVA/TIA Dizziness and Vertigo Peripheral Edema RISK FACTORS Hypertension 2D DIMENSIONS IVSd1.0 (0.7-1.1cm)LVDd4.2 (3.9-5.9cm) PWd1.1 (0.7-1.1cm)LVDs2.6 (2.5-4.0cm) FS (%) 39.2 %LVEF (%)70.0 (>50%) M-Mode DIMENSIONS Left Atrium (MM)3.69 (2.5-4.0cm)Aortic Root3.53 (2.2-3.7cm) Aortic Cusp Exc.2.24 (1.5-2.0cm) Mitral Valve MV E Upoycqza070.8cm/sMV A Pedvlkgw690.0cm/sE/A ratio0.9 TDI E/Lateral E'0.0E/Medial E'0.0 Tricuspid Valve TR Peak [id number] Peak [id number] LEFT VENTRICLE The left ventricle is normal size. There is normal left ventricular wall thickness. The left ventricular function is normal. The left ventricular ejection fraction is within the normal range. There is normal LV segmental wall motion. Transmitral Doppler flow pattern is abnormal. RIGHT VENTRICLE The right ventricle is normal size. ATRIA The left atrium size is normal. The right atrium size is normal. AORTIC VALVE The aortic valve is normal in structure. MITRAL VALVE Mitral regurgitation is trace to mild. TRICUSPID VALVE There is mild tricuspid regurgitation. <Conclusion> Normal lV systolic function. Diastolic dysfunction. Normal chamber size. Trace MR. Mild TR.
--- NOTE | 2017-10-28 19:10 | CARD ---
APPROVED REPORT EKG Measurement Heart [id number] <Conclusion> Normal sinus rhythm Rightward axis Borderline ECG
[2017-10-28] MEDS: Vancomycin 1 gm/NS 200 ml 1 GM/200 ML BAG IVPB SCH (22:00)
[2017-10-29] MEDS: MethylPREDNISolone 40 mg Vial IVP SCH ×3 (00:34→16:36)
[2017-10-29] MEDS ORDERED: Heparin25000 units/250ml 1/2NS 25,000 UNITS/250 ML BAG IV PRN (04:15)
[2017-10-29] MEDS: Heparin25000 units/250ml 1/2NS 25,000 UNITS/250 ML BAG IV PRN ×2 (04:30→11:08)
--- NOTE | 2017-10-29 05:51 | CON ---
DATE: INFECTIOUS DISEASE CONSULTATION REQUESTED BY: Lashon Duong DO HISTORY: This patient is an 81-year-old female. She has a history of asthma, obesity, hypertension, hypothyroidism, history of kidney infections, CVA, mini-stroke, and cellulitis. Recently, her swelling in her lower extremities started 4 weeks ago and was getting worse, she says. She was in dialysis for one week where she was getting antibiotics which did not help her. She went to her PMD, Dr. Bolanos, and was again started on clindamycin for 10 days which was also not helping her. She was having lot of pain and cellulitis and came in with swelling in both lower extremities, redness which was extending up to her thighs. She was also short of breath and she has a history of asthma. She uses Ventolin nebulizers, but she was acutely hypoxic. Hence, Dr. Duong did a V/Q scan, which was positive for PE. The patient is also getting Dopplers done. When I went to see her, she was on oxygen and dyspneic and on heparin. Heparin was on hold today at the time when I saw her because the PTT was more than 400. She is allergic to penicillin, hence she has been on vancomycin and clindamycin. PAST MEDICAL HISTORY: Significant for asthma, hypertension, hypothyroidism, history of kidney infections, TIA, and cellulitis. PAST SURGICAL HISTORY: Bilateral knee surgery. She has scars on both lower extremities, and she had left fourth digit injury at age 60. FAMILY HISTORY: Mother of [place], and she is an ex-smoker. She smoked 30 years back and smoked 5 cigarettes per day for 10 years. Denies any alcohol or drug abuse. She lives with her daughter. MEDICATIONS: She was on Ventolin nebulizers, Synthroid, Plavix, amlodipine, valsartan, hydrochlorothiazide, gabapentin. She has no fever or chills. No throat problem but has been significantly short of breath, has leg edema, and came in with increased warmth in lower extremities. Denies any cough or wheezing. No fever. She does have abdominal pain. She has urinary incontinence, marquez. She also has myalgias, musculoskeletal. Integument: She has erythema, skin warmth, tenderness, and pain in the lower extremities. Right thigh was worse than the left. PAST MEDICAL HISTORY: Significant for former smoker; hypercholesterolemia; hypertension; asthma; hypothyroidism; no substance abuse, psych marquez; has bilateral knee surgeries; anesthesia, she has had before for her knee surgeries. ALLERGIES: SHE IS ALLERGIC TO PENICILLIN. MEDICATIONS: She is getting here DuoNeb. She is getting q.6 hours amlodipine; clindamycin, she is on 600 mg q.8 hours; on Plavix, Neurontin, heparin. She is getting per their protocol, Synthroid, Solu-Medrol 40 q.8, Protonix, Florastor, and she is on vancomycin, she is getting it q.12, but she is 81 years old, I think q.12 may be a lot for her. PHYSICAL EXAMINATION: VITAL SIGNS: I find her temperature is 99.8 right now, heart rate of 128, blood pressure 122/84, respirations are 20 to 22. She is on nasal cannula. HEENT: Head is atraumatic, normocephalic. She speaks Taiwanese. Pupils are reacting to light. Tongue is dry. NECK: Supple. JVP is flat. LUNGS: Decreased breath sounds bilaterally. ABDOMEN: She is obese, unable to appreciate any air movement. Soft, flabby, nontender. HEART: S1, S2 regular. No murmurs appreciated. EXTREMITIES: She has a yoselin in the right thigh where the redness and swelling was extending, but now the warmth is less and the erythema is decreasing. It is now in both lower extremities. Right also has a patch of redness which may have had recurrent swellings and erythema there and has cellulitis on the right leg. Left leg is slightly better but bilateral edema present at this time. She has erythema, and she has no back pain at this time. NEURO: She is alert and oriented x3. LABS: Labs are noted. Labs show white count is 6.2, hemoglobin 11, hematocrit 32.3, platelet count is 217. D-dimers are 719, monitoring the PTT. ABG showed PO2 of 69 and CO2 of 35, pH was 7.42. Sodium is 144, potassium 5.2, chloride is 113, CO2 is 20, anion gap is 16, BUN is 14, creatinine is 1.2 and TSH is mildly elevated at 7.73, but free T4 is 1.23, so she is maybe clinically euthyroid. UA shows nitrite positive and WBC 12, may have a UTI also. IMPRESSION: So, my impression is this patient has multiple things going on. She is obese with BMI of 43.9 with morbid obesity, hypertension, history of asthma, who comes in with cellulitis, extensive, on the right leg, more so than the left leg, and she is hypothyroid and asthma. She has cellulitis. She may have UTI, and she has acute pulmonary embolism and needs to be monitored closely. I agree with vancomycin and clindamycin, but we would decrease the dose of vancomycin to once a day and we will follow. We will follow with you. We are waiting for the venous Dopplers which were ordered. Awais Maher MD
[2017-10-29] MEDS: Levothyroxine 50 MCG TAB PO SCH (06:30)
[2017-10-29 07:43] LABS: BASO % 0.2 % (0.0-2.0); HEMOGLOBIN 11.2 g/dL (11.0-16.0); LYMPH % 21.1 % (20.0-40.0); MEAN CELL VOLUME 84.4 fL (81.0-99.0); MEAN CORPUSCULAR HEMOGLOBIN 28.5 pg (27.0-31.0); MEAN CORPUSCULAR HGB CONC 33.7 g/dL (33.0-37.0); MEAN PLATELET VOLUME 8.4 fL (7.2-11.7); MONO % 0.9 % (0.0-10.0); NEUT # 3.8 K/uL (1.8-7.0); NEUT % 77.8 % (50.0-75.0); NRBC % 0.1 % (0.0-2.0); RBC 3.92 Mil/uL (3.80-5.20); RED CELL DISTRIBUTION WIDTH 14.8 % (11.5-14.5); WHITE BLOOD COUNT 4.8 K/uL (4.8-10.8)
--- NOTE | 2017-10-29 07:48 | CP.PCM.PN ---
<Tiffanie Villa - Last Filed: 10/29/17 11:19> Subjective - Date & Time of Evaluation Date of Evaluation: 10/29/17 Time of Evaluation: 07:00 - Subjective Subjective: Patient seen and examined at bedside and in no acute distress. Patient says she is feeling better than yesterday. Patient denies any headache, chest pain, abdominal pain, nausea, vomiting, constipation, or diarrhea. Patient is still short of breath, but says the CPAP at night helped. Patient says her LE pain is decreasing. Objective - Vital Signs/Intake and Output Vital Signs (last 24 hours): Temp Pulse Resp BP Pulse Ox 97.7 F 78 20 140/81 96 10/28/17 23:30 10/29/17 05:21 10/28/17 23:30 10/28/17 23:30 10/28/17 23:30 Intake and Output: 10/29/17 10/29/17 06:59 18:59 Intake Total 1120.0 Balance 1120.0 - Medications Medications: Current Medications Albuterol/Ipratropium (Duoneb 3 Mg/0.5 Mg (3 Ml) Ud) 3 ml INH RQ6 PRN PRN Reason: Shortness of Breath Last Admin: 10/28/17 07:22 Dose: 3 ml Amlodipine Besylate (Norvasc) 10 mg PO DAILY REPLACED BY [facility] Last Admin: 10/28/17 11:24 Dose: 10 mg Clopidogrel Bisulfate (Plavix) 75 mg PO DAILY REPLACED BY [facility] Last Admin: 10/28/17 11:24 Dose: 75 mg Gabapentin (Neurontin) 100 mg PO TID REPLACED BY [facility] Last Admin: 10/28/17 17:56 Dose: 100 mg Clindamycin Phosphate 600 mg/ (Sodium Chloride) 54 mls @ 100 mls/hr IVPB Q8H MAR PRN Reason: Protocol Last Admin: 10/29/17 02:33 Dose: 100 mls/hr Vancomycin/Sodium Chloride (Vancomycin 1 Gm/Ns 200 Ml) 1 gm in 200 mls @ 133.333 mls/hr IVPB Q24H MAR PRN Reason: Protocol Stop: 11/02/17 21:01 Last Admin: 10/28/17 22:00 Dose: 133.333 mls/hr Heparin Sodium/Sodium Chloride (Heparin 84675 Units/250ml 1/2 Normal Saline) 25 ,000 units in 250 mls @ 13.063 mls/hr IV .Q19H9M PRN; Protocol; 12 UNITS/KG/HR PRN Reason: PROTOCOL Last Admin: 10/29/17 04:30 Dose: 12 units/kg/hr, 13.063 mls/hr Lactobacillus Acidophilus (Bacid Acidophilus) 1 cap PO BID REPLACED BY [facility] Levothyroxine Sodium (Synthroid) 50 mcg PO 0630 REPLACED BY [facility] Last Admin: 10/29/17 06:30 Dose: 50 mcg Methylprednisolone (Solu-Medrol) 40 mg IVP Q8H REPLACED BY [facility] Last Admin: 10/29/17 00:34 Dose: 40 mg Pantoprazole Sodium (Protonix Inj) 40 mg IVP DAILY REPLACED BY [facility] Last Admin: 10/28/17 17:57 Dose: 40 mg Pneumococcal Polyvalent Vaccine (Pneumovax 23 Vaccine) 0.5 ml IM .ONCE ONE Stop: 10/29/17 14:01 Saccharomyces Boulardii (Florastor) 250 mg PO BID REPLACED BY [facility] Last Admin: 10/28/17 17:56 Dose: 250 mg - Labs Labs: 10/28/17 07:28 10/28/17 07:28 PT 11.8 SECONDS (9.7-12.2) 10/28/17 14:06 INR 1.1 10/28/17 14:06 APTT 131 SECONDS (21-34) H* D 10/29/17 02:01 - Additional Findings Additional findings: - Constitutional Appears: Non-toxic, No Acute Distress - Head Exam Head Exam: ATRAUMATIC, NORMAL INSPECTION, NORMOCEPHALIC - Eye Exam Eye Exam: EOMI, Normal appearance - ENT Exam ENT Exam: Mucous Membranes Moist - Respiratory Exam Respiratory Exam: Decreased Breath Sounds. absent: NORMAL BREATHING PATTERN ( tachypnea) - Cardiovascular Exam Cardiovascular Exam: REGULAR RHYTHM, RRR - GI/Abdominal Exam GI & Abdominal Exam: Normal Bowel Sounds, Soft, Tenderness (mild diffuse tenderness, no suprapubic tenderness ). absent: Distended - Extremities Exam Extremities exam: Positive for: pedal edema, tenderness Additional comments: b/l non pitting edema and decreasing erythema, erythema resolved from left leg, slight erythema on lower aspect of R LE - Back Exam Back exam: absent: CVA tenderness (L), CVA tenderness (R) - Neurological Exam Neurological exam: Alert, Oriented x3 - Psychiatric Exam Psychiatric exam: Normal Affect, Normal Mood - Skin Skin Exam: Erythema, Warm Assessment and Plan - Assessment and Plan (Free Text) Assessment: Pulmonary Embolism D-dimer: 719 V/Q scan: high probability for PE Heparin drip monitor PTT Heme/Onc consulted, Dr. Tao, help appreciated Pulmonology consulted, Dr. Tian, help appreciated B/L LE cellulitis -Vanco 1gm q24 h changed from q12h as per Dr. Maher, trough 30min before thurs evening dose -Clinda 600mg ivpb q8h -Florastor po BID -Lasix 40mg ivp daily started on 10/29 -outlined cellulitis on legs -LE dopplers: negative for DVT -ID consult, Dr. Maher, help appreciated Shortness of breath 2/2 PE -EKG: NRS -Echo ordered-- cardiomegaly seen on chest xray -Duonebs q6h prn -ABG: pH:7.42, pCO2: 35, pO2: 69 -D- dimer: 719 -Pulmonology consulted, Dr. Tian, help appreciated -Prednisone 40mg ivp q8h -CPAP HS HTN -hypotensive on admission -hold home meds Hypothyroidism -continue Synthroid 50mcg po daily -free T4: 1.01 -TSH: 7.73 CKD -GFR 43, (spoke to staff at PMDs office, in June GFR 29, BUN 8, Cr: 1.64) -UA: positive nitrates -renally dose meds UTI UA: positive nitrates, 12wbc, few bacteria, 3-5 hyaline casts -on antibiotics for LE cellulitis -f/u Urine Culture Hx TIA -continue Clopidogrel 75mg po daily Asthma -not in an acute exacerbation -portable cxray: no active disease, poor inspiratory effort -Duonebs q6h prn Hx kidney infections - No CVA tenderness - UA: positive nitrates, 12wbc, few bacteria, 3-5 hyaline casts - f/u UC Morbid Obesity -TSH: 7.73, Free T4: 1.23 -Lipid panel: Triglycerides 111, Cholesterol 164, LDL 94, HDL 54 -HgA1C: 5.7 Chronic Low back pain -continue home medication Gabapentin 100mg po TID Prophylaxis -Heparin drip -PT/OT -no gi propylaxis indicated -Heart healthy low sodium diet <Borker,Lashon V - Last Filed: 10/30/17 20:54> Objective - Vital Signs/Intake and Output Vital Signs (last 24 hours): Temp Pulse Resp BP Pulse Ox 97.4 F L 83 24 115/69 96 10/30/17 16:00 10/30/17 16:08 10/30/17 16:00 10/30/17 16:00 10/30/17 16:00 Intake and Output: 10/30/17 10/31/17 18:59 06:59 Intake Total 250 Balance 250 - Medications Medications: Current Medications Albuterol/Ipratropium (Duoneb 3 Mg/0.5 Mg (3 Ml) Ud) 3 ml INH RQ6 PRN PRN Reason: Shortness of Breath Last Admin: 10/28/17 07:22 Dose: 3 ml Amlodipine Besylate (Norvasc) 10 mg PO DAILY REPLACED BY [facility] Last Admin: 10/30/17 09:16 Dose: 10 mg Clopidogrel Bisulfate (Plavix) 75 mg PO DAILY REPLACED BY [facility] Last Admin: 10/30/17 09:16 Dose: 75 mg Furosemide (Lasix) 40 mg IVP DAILY REPLACED BY [facility] Last Admin: 10/30/17 09:14 Dose: 40 mg Gabapentin (Neurontin) 100 mg PO TID REPLACED BY [facility] Last Admin: 10/30/17 17:54 Dose: 100 mg Clindamycin Phosphate 600 mg/ (Sodium Chloride) 54 mls @ 100 mls/hr IVPB Q8H MAR PRN Reason: Protocol Last Admin: 10/30/17 17:52 Dose: Not Given Vancomycin/Sodium Chloride (Vancomycin 1 Gm/Ns 200 Ml) 1 gm in 200 mls @ 133.333 mls/hr IVPB Q24H MAR PRN Reason: Protocol Stop: 11/02/17 21:01 Last Admin: 10/29/17 22:04 Dose: 133.333 mls/hr Lactobacillus Acidophilus (Bacid Acidophilus) 1 cap PO BID REPLACED BY [facility] Last Admin: 10/30/17 17:54 Dose: 1 cap Levothyroxine Sodium (Synthroid) 50 mcg PO 0630 MAR Last Admin: 10/30/17 06:54 Dose: 50 mcg Methylprednisolone (Solu-Medrol) 40 mg IVP Q12H REPLACED BY [facility] Pantoprazole Sodium (Protonix Inj) 40 mg IVP DAILY REPLACED BY [facility] Last Admin: 10/30/17 09:14 Dose: 40 mg Pantoprazole Sodium (Protonix Ec Tab) 40 mg PO DAILY MAR Prednisone (Prednisone Tab) 40 mg PO DAILY MAR Stop: 11/05/17 10:01 Saccharomyces Alyssadii (Florastor) 250 mg PO BID REPLACED BY [facility] Last Admin: 10/30/17 17:54 Dose: 250 mg - Labs Labs: 10/30/17 06:50 10/30/17 06:52 PT 11.8 SECONDS (9.7-12.2) 10/28/17 14:06 INR 1.1 10/28/17 14:06 APTT 100 SECONDS (21-34) H* D 10/30/17 09:01 Attending/Attestation - Attestation I have personally seen and examined this patient.: Yes I have fully participated in the care of the patient.: Yes I have reviewed all pertinent clinical information, including history, physical exam and plan: Yes Notes (Text): This is late computer entry for 10/29/17. Patient seen and examined with resident at bedside this morning. Patient reports she is feeling better. Patient reporting the CPAP at night is helping her with the breathing. Patient started on heparin drip. We will consult heme-oncology for anticoagulation recommendation given mild renal insufficiency. Awaiting official report of venous duplex. Patient's cellulitic legs improving-->left lower extremity has resolved and right lower extremity has improved. Will c/w IV abx as per ID. We will start IV lasix given blood pressure improvement. Assessment/Plan 1. B/L LE cellulitis * Infectious Disease (Dr. Maher) supervisor dehydrogenation-->help appreciated * In the ED, Patient received first dose of Vancomycin and Clindamycin. * c/w Vanco 1gm q24h * c.w Clindamycin 600mg ivpb q8h * c/w lorastor po BID * outline cellulitis on legs--> clinically improving; continue to monitor * Venous dopplers completed-->awaiting official report 2. Shortness of breath COPD Obstructive Sleep Apnea Pulmonary Embolus * Transfer to telemetry for elevated d-dimer; and PE on V/Q scan * Pulmonary (Dr. Tian) on board-->help appreciated * Recommend for Solumedrol 40mg IV Q8H, nebulizers and CPAP at 10 cm at night * EKG; Troponin negative. Probnp not elevated * Echocardiogram (10/28/17) * normal LV systolic function, diastolic dysfunction, normal chamber size, trace MR, mild TR * Duonebs q6h prn shortness of breathe; given stat dose of Duoneb in ED * V/Q shows high probability of PE * Patient is on heparin drip to treat for PE-->will consult heme-onc for recommendation * pending official venous dopplers 3. HTN * Patient is borderline hypotensive on admission * If blood pressure continues to improve, will restart blood pressure medications 4. Hypothyroidism * continue Synthroid 50mcg po daily * Elevated TSH, normal Free T4 5. Acute on Chronic Kidney Disease * Jun 2017-->GFR: 29 and creatinine 1.6 * Will renally dose meds 6. Hx TIA * continue Clopidogrel 75mg po daily 7. Hx of Asthma/COPD * portable cxray: no active disease, poor inspiratory effort * Duonebs q6h prn * Solumedrol 40mg IV Q 8H 8. Hx of kidney infections; hx of urinary incontinence * Patient wears diapers. There is no infection in the intrigenous folds on my exam. negative suprapubic tendernes, negative b/l CVA tenderness * Patient is currently on IV Clindamycin and IV Vancomycin * Awaiting urinary culture * UA shows pyuria, nitrate, and bacteria 9.Impaired glucose intolerance * hgba1c:5.7-->will need diet and exercise modifcations 10. Prophylaxis * Hold SCDs until DVT is ruled out * Heparin drip * PT/OT * protonix for GI ppx * Heart healthy low sodium diet Disposition: f/u reports of venous doppler; consult heme-oncology; c/w IV abx; c /w physical therapy
[2017-10-29 08:07] LABS: ALB/GLOB RATIO 1.1 (1.0-2.1); ALBUMIN 3.7 g/dL (3.5-5.0); CALCIUM 9.2 mg/dl (8.6-10.4)
--- NOTE | 2017-10-29 09:53 | CP.PCM.PN ---
Objective - Vital Signs/Intake and Output Vital Signs (last 24 hours): Temp Pulse Resp BP Pulse Ox 97.4 F L 81 20 144/85 97 10/29/17 09:00 10/29/17 09:00 10/29/17 09:00 10/29/17 09:00 10/29/17 09:00 Intake and Output: 10/29/17 10/29/17 06:59 18:59 Intake Total 1120.0 Balance 1120.0 - Medications Medications: Current Medications Albuterol/Ipratropium (Duoneb 3 Mg/0.5 Mg (3 Ml) Ud) 3 ml INH RQ6 PRN PRN Reason: Shortness of Breath Last Admin: 10/28/17 07:22 Dose: 3 ml Amlodipine Besylate (Norvasc) 10 mg PO DAILY [facility] Last Admin: 10/28/17 11:24 Dose: 10 mg Clopidogrel Bisulfate (Plavix) 75 mg PO DAILY [facility] Last Admin: 10/28/17 11:24 Dose: 75 mg Gabapentin (Neurontin) 100 mg PO TID [facility] Last Admin: 10/28/17 17:56 Dose: 100 mg Clindamycin Phosphate 600 mg/ (Sodium Chloride) 54 mls @ 100 mls/hr IVPB Q8H MAR PRN Reason: Protocol Last Admin: 10/29/17 02:33 Dose: 100 mls/hr Vancomycin/Sodium Chloride (Vancomycin 1 Gm/Ns 200 Ml) 1 gm in 200 mls @ 133.333 mls/hr IVPB Q24H MAR PRN Reason: Protocol Stop: 11/02/17 21:01 Last Admin: 10/28/17 22:00 Dose: 133.333 mls/hr Heparin Sodium/Sodium Chloride (Heparin 84379 Units/250ml 1/2 Normal Saline) 25 ,000 units in 250 mls @ 13.063 mls/hr IV .Q19H9M PRN; Protocol; 12 UNITS/KG/HR PRN Reason: PROTOCOL Last Admin: 10/29/17 04:30 Dose: 12 units/kg/hr, 13.063 mls/hr Lactobacillus Acidophilus (Bacid Acidophilus) 1 cap PO BID [facility] Levothyroxine Sodium (Synthroid) 50 mcg PO 0630 [facility] Last Admin: 10/29/17 06:30 Dose: 50 mcg Methylprednisolone (Solu-Medrol) 40 mg IVP Q8H [facility] Last Admin: 10/29/17 08:18 Dose: 40 mg Pantoprazole Sodium (Protonix Inj) 40 mg IVP DAILY [facility] Last Admin: 10/28/17 17:57 Dose: 40 mg Pneumococcal Polyvalent Vaccine (Pneumovax 23 Vaccine) 0.5 ml IM .ONCE ONE Stop: 10/29/17 14:01 Saccharomyces Boulardii (Florastor) 250 mg PO BID [facility] Last Admin: 10/28/17 17:56 Dose: 250 mg - Labs Labs: 10/29/17 07:16 10/29/17 07:16 PT 11.8 SECONDS (9.7-12.2) 10/28/17 14:06 INR 1.1 10/28/17 14:06 APTT 164 SECONDS (21-34) H* D 10/29/17 09:07 Assessment and Plan - Assessment and Plan (Free Text) Assessment: Pulmonary Embolism V/Q scan: high probability for PE Heparin drip monitor PTT Pulmonology consulted, Dr. Tian, help appreciated B/L LE cellulitis -Vanco 1gm q24h decreased from q12h as per Dr. Maher trough 30min before thurs evening dose -Clinda 600mg ivpb q8h -Florastor po BID -outlined cellulitis on legs -no SCDs until dvt ruled out -ID consult, Dr. Maher, help appreciated Shortness of breath 2/2 PE -EKG: NRS -Echo ordered-- cardiomegaly seen on chest xray Echo (10/27): normal LV systolic function (EF: 70%) Diastolic dysfunction. normal chamber size, trace MR, mild TR. -Pulmonology consulted, Dr. Tian, help appreciated -Solumedrol 40mg ivp q8h -CPAP as night -Duonebs q6h prn -ABG: pH:7.42, pCO2: 35, pO2: 69 -D- dimer: 719 HTN -hypotensive on admission -hold home meds Hypothyroidism -continue Synthroid 50mcg po daily -free T4: 1.01 -TSH: 7.73 CKD -GFR 43, (spoke to staff at PMDs office, in June GFR 29, BUN 8, Cr: 1.64) -UA: positive nitrates -renally dose meds UTI UA: positive nitrates, 12wbc, few bacteria, 3-5 hyaline casts -on antibiotics for LE cellulitis -f/u Urine Culture Hx TIA -continue Clopidogrel 75mg po daily Asthma -not in an acute exacerbation -portable cxray: no active disease, poor inspiratory effort -Duonebs q6h prn Hx kidney infections - No CVA tenderness - UA: positive nitrates, 12wbc, few bacteria, 3-5 hyaline casts - f/u UC Morbid Obesity -TSH: 7.73, Free T4: 1.23 -Lipid panel: Triglycerides 111, Cholesterol 164, LDL 94, HDL 54 -HgA1C: 5.7 Chronic Low back pain -continue home medication Gabapentin 100mg po TID Prophylaxis -Hold SCDs -Heparin drip -PT/OT -no gi propylaxis indicated -Heart healthy low sodium diet
[2017-10-29] MEDS: Saccharomyces Boulardi 250 mg Cap PO SCH ×2 (10:11→17:01)
[2017-10-29] MEDS: Lactobacillus Acidophilus 500 MU Cap PO SCH ×2 (10:11→17:01)
--- NOTE | 2017-10-29 11:18 | VASCLAB ---
PROCEDURE: Lower Extremity Venous Duplex Exam. HISTORY: Bilateral leg edema PRIORS: None. TECHNIQUE: Bilateral common femoral, femoral, popliteal and posterior tibial, peroneal and great saphenous veins were evaluated. Flow was assessed with color Doppler, compressibility, assessment of phasic flow and augmentation response. Report prepared by EDDIE Hurst FINDINGS: RIGHT: 1. Common Femoral Vein: 1.1. Compressibility - Fully compressible: Thrombus - None : Flow - Phasic: Augmentation -Normal: Reflux - None. 2. Femoral Vein: (proximal and mid) 2.1. Compressibility - Fully compressible: Thrombus - None : Flow - Phasic: Augmentation -Normal: Reflux - None. 3. Popliteal Vein: 3.1. Compressibility - Fully compressible: Thrombus - None : Flow - Phasic: Augmentation -Normal: Reflux - None. 4. Posterior Tibial Vein: 5. Peroneal Vein: 6. Great Saphenous Vein: 6.1. Not visualized. LEFT: 1. Common Femoral Vein: 1.1. Compressibility - Fully compressible: Thrombus - None: Flow - Phasic: Augmentation -Normal: Reflux - None. 2. Femoral Vein: (proximal and mid) 2.1. Compressibility - Fully compressible: Thrombus - None: Flow - Phasic: Augmentation -Normal: Reflux - None. 3. Popliteal Vein: 3.1. Compressibility - Fully compressible: Thrombus - None : Flow - Phasic: Augmentation -Normal: Reflux - None. 4. Posterior Tibial Vein: (distal only) 4.1. Compressibility - Fully compressible: Thrombus - None: Flow - Phasic: Augmentation -Normal: Reflux - None. 5. Peroneal Vein: 6. Great Saphenous Vein: 6.1. Compressibility - Fully compressible: Thrombus - None: Flow - Phasic: Augmentation - Normal: Reflux - None. OTHER FINDINGS: Unable to visualize bilateral distal femoral, and calf veins due to swelling. IMPRESSION: No evidence of deep or superficial vein thrombosis of the lower extremities, for the imaged veins.
--- NOTE | 2017-10-29 13:38 | CP.PCM.CON ---
History of Present Illness - History of Present Illness History of Present Illness: 81 year old female with a history of hypothyroid, HTN, asthma, TIA, admitted with lower extremity swelling, being treated for cellulitis, found to have PE by V/Q scan. The patient reports to lower extermity swelling and pain. She was treated at [facility] and her PMD with repeat courses of antibiotics with no improvement. She also notes to progressive dyspnea with exertion. A V/Q scan was high probability for PE. She is curently on anticoagulation. Past medical history: HTN, hypothyroid, asthma, TIA Past surgical history: Knee surgery, finger surgery Family history: Mother of GA at age 40 Social history: Former tobacco abuse Allergies: Penicillins. Review of systems: All remaining review of systems including HEENT, cardiovascular, respiratory, gastrointestinal, genitourinary, musculoskeletal, dermatologic, neurologic, and psychiatric are negative unless mentioned in the HPI. Past Patient History - Past Medical History & Family History Past Medical History?: Yes - Past Social History Smoking Status: Former Smoker - CARDIAC Hx Cardiac Disorders: Yes Hx Hypercholesterolemia: Yes Hx Hypertension: Yes - PULMONARY Hx Respiratory Disorders: Yes Hx Asthma: Yes - NEUROLOGICAL Hx Neurological Disorder: No - HEENT Hx HEENT Problems: No - RENAL Hx Chronic Kidney Disease: No - ENDOCRINE/METABOLIC Hx Endocrine Disorders: Yes Hx Hypothyroidism: Yes - HEMATOLOGICAL/ONCOLOGICAL Hx Blood Disorders: No - INTEGUMENTARY Hx Dermatological Problems: No - MUSCULOSKELETAL/RHEUMATOLOGICAL Hx Musculoskeletal Disorders: No Hx Falls: No - GASTROINTESTINAL Hx Gastrointestinal Disorders: No - GENITOURINARY/GYNECOLOGICAL Hx Genitourinary Disorders: No - PSYCHIATRIC Hx Psychophysiologic Disorder: No Hx Substance Use: No - SURGICAL HISTORY Hx Surgeries: Yes Other/Comment: bilateral knee sx. left hand sx - ANESTHESIA Hx Anesthesia: Yes Hx Anesthesia Reactions: No Hx Malignant Hyperthermia: No Has any member of the family had a problem w/ anesthesia?: No Meds Allergies/Adverse Reactions: Allergies Allergy/AdvReac Type Severity Reaction Status Date / Time Penicillins Allergy RASH Verified 10/27/17 14:12 - Medications Medications: Current Medications Albuterol/Ipratropium (Duoneb 3 Mg/0.5 Mg (3 Ml) Ud) 3 ml INH RQ6 PRN PRN Reason: Shortness of Breath Last Admin: 10/28/17 07:22 Dose: 3 ml Amlodipine Besylate (Norvasc) 10 mg PO DAILY [facility] Last Admin: 10/29/17 10:11 Dose: 10 mg Clopidogrel Bisulfate (Plavix) 75 mg PO DAILY [facility] Last Admin: 10/29/17 10:11 Dose: 75 mg Furosemide (Lasix) 40 mg IVP DAILY [facility] Last Admin: 10/29/17 11:22 Dose: 40 mg Gabapentin (Neurontin) 100 mg PO TID [facility] Last Admin: 10/29/17 10:10 Dose: 100 mg Clindamycin Phosphate 600 mg/ (Sodium Chloride) 54 mls @ 100 mls/hr IVPB Q8H [facility] PRN Reason: Protocol Last Admin: 10/29/17 10:11 Dose: 100 mls/hr Vancomycin/Sodium Chloride (Vancomycin 1 Gm/Ns 200 Ml) 1 gm in 200 mls @ 133.333 mls/hr IVPB Q24H [facility] PRN Reason: Protocol Stop: 11/02/17 21:01 Last Admin: 10/28/17 22:00 Dose: 133.333 mls/hr Heparin Sodium/Sodium Chloride (Heparin 38374 Units/250ml 1/2 Normal Saline) 25 ,000 units in 250 mls @ 13.063 mls/hr IV .Q19H9M PRN; Protocol; 12 UNITS/KG/HR PRN Reason: PROTOCOL Last Admin: 10/29/17 11:08 Dose: 9 units/kg/hr, 9.798 mls/hr Lactobacillus Acidophilus (Bacid Acidophilus) 1 cap PO BID [facility] Last Admin: 10/29/17 10:11 Dose: 1 cap Levothyroxine Sodium (Synthroid) 50 mcg PO 0630 [facility] Last Admin: 10/29/17 06:30 Dose: 50 mcg Methylprednisolone (Solu-Medrol) 40 mg IVP Q8H [facility] Last Admin: 10/29/17 08:18 Dose: 40 mg Pantoprazole Sodium (Protonix Inj) 40 mg IVP DAILY [facility] Last Admin: 10/29/17 10:10 Dose: 40 mg Pneumococcal Polyvalent Vaccine (Pneumovax 23 Vaccine) 0.5 ml IM .ONCE ONE Stop: 10/29/17 14:01 Saccharomyces Boulardii (Florastor) 250 mg PO BID [facility] Last Admin: 10/29/17 10:11 Dose: 250 mg Physical Exam - Head Exam Head Exam: ATRAUMATIC - Eye Exam Eye Exam: Normal appearance - ENT Exam ENT Exam: Mucous Membranes Dry - Respiratory Exam Respiratory Exam: NORMAL BREATHING PATTERN - Cardiovascular Exam Cardiovascular Exam: +S1, +S2 - GI/Abdominal Exam GI & Abdominal Exam: Normal Bowel Sounds Results - Vital Signs Recent Vital Signs: Last Vital Signs Temp 97.4 F L 10/29/17 09:00 Pulse 98 H 10/29/17 12:00 Resp 20 10/29/17 09:00 BP 118/67 10/29/17 11:22 Pulse Ox 97 10/29/17 09:00 - Labs Result Diagrams: 10/29/17 07:16 10/29/17 07:16 Labs: Laboratory Results - last 24 hr 10/28/17 10/28/17 10/28/17 14:06 18:28 21:52 WBC RBC Hgb Hct MCV MCH MCHC RDW Plt Count MPV Neut % (Auto) Lymph % (Auto) [place] % (Auto) Eos % (Auto) Baso % (Auto) Neut # (Auto) Lymph # (Auto) [place] # (Auto) Eos # (Auto) Baso # (Auto) PT 11.8 INR 1.1 APTT > 400 H* D 127 H* D 40 H D Sodium Potassium Chloride Carbon Dioxide Anion Gap BUN Creatinine Est GFR ( Amer) Est GFR (Non-Af Amer) Random Glucose Calcium Phosphorus Magnesium Total Bilirubin AST ALT Alkaline Phosphatase Total Protein Albumin Globulin Albumin/Globulin Ratio 10/29/17 10/29/17 10/29/17 02:01 07:16 07:16 WBC 4.8 RBC 3.92 Hgb 11.2 Hct 33.1 L MCV 84.4 MCH 28.5 MCHC 33.7 RDW 14.8 H Plt Count 227 MPV 8.4 Neut % (Auto) 77.8 H Lymph % (Auto) 21.1 [place] % (Auto) 0.9 Eos % (Auto) 0.0 Baso % (Auto) 0.2 Neut # (Auto) 3.8 Lymph # (Auto) 1.0 [place] # (Auto) 0.0 Eos # (Auto) 0.0 Baso # (Auto) 0.0 PT INR APTT 131 H* D Sodium 143 Potassium 4.8 Chloride 108 H Carbon Dioxide 24 Anion Gap 16 BUN 17 Creatinine 1.3 H Est GFR ( Amer) 48 Est GFR (Non-Af Amer) 39 Random Glucose 137 H Calcium 9.2 Phosphorus 3.7 Magnesium 2.2 Total Bilirubin 0.5 AST 29 ALT 10 Alkaline Phosphatase 97 Total Protein 7.0 Albumin 3.7 Globulin 3.3 Albumin/Globulin Ratio 1.1 10/29/17 09:07 WBC RBC Hgb Hct MCV MCH MCHC RDW Plt Count MPV Neut % (Auto) Lymph % (Auto) [place] % (Auto) Eos % (Auto) Baso % (Auto) Neut # (Auto) Lymph # (Auto) [place] # (Auto) Eos # (Auto) Baso # (Auto) PT INR APTT 164 H* D Sodium Potassium Chloride Carbon Dioxide Anion Gap BUN Creatinine Est GFR ( Amer) Est GFR (Non-Af Amer) Random Glucose Calcium Phosphorus Magnesium Total Bilirubin AST ALT Alkaline Phosphatase Total Protein Albumin Globulin Albumin/Globulin Ratio Assessment & Plan (1) Pulmonary embolism Assessment and Plan: on therapeutic anticoagulation ? provoked from limited mobility recommend LE venous duplex to rule out DVT Status: Acute (2) Anemia Assessment and Plan: mild will check retic count, b12, folate, ferritin to further characterize Status: Acute (3) Coagulopathy Assessment and Plan: secondary to anticoagulation Thank you for this interesting consult. Status: Acute
[2017-10-29] MEDS ORDERED: Pneumococcal 23-Valent Vaccine IM ONE (14:00)
--- NOTE | 2017-10-29 16:10 | CP.PCM.PN ---
Subjective - Date & Time of Evaluation Date of Evaluation: 10/29/17 Time of Evaluation: 15:20 - Subjective Subjective: dictatec Objective - Vital Signs/Intake and Output Vital Signs (last 24 hours): Temp Pulse Resp BP Pulse Ox 97.4 F L 98 H 20 118/67 97 10/29/17 09:00 10/29/17 12:00 10/29/17 09:00 10/29/17 11:22 10/29/17 09:00 Intake and Output: 10/29/17 10/29/17 06:59 18:59 Intake Total 1120.0 788.3 Balance 1120.0 788.3 - Medications Medications: Current Medications Albuterol/Ipratropium (Duoneb 3 Mg/0.5 Mg (3 Ml) Ud) 3 ml INH RQ6 PRN PRN Reason: Shortness of Breath Last Admin: 10/28/17 07:22 Dose: 3 ml Amlodipine Besylate (Norvasc) 10 mg PO DAILY [facility] Last Admin: 10/29/17 10:11 Dose: 10 mg Clopidogrel Bisulfate (Plavix) 75 mg PO DAILY [facility] Last Admin: 10/29/17 10:11 Dose: 75 mg Furosemide (Lasix) 40 mg IVP DAILY [facility] Last Admin: 10/29/17 11:22 Dose: 40 mg Gabapentin (Neurontin) 100 mg PO TID [facility] Last Admin: 10/29/17 14:20 Dose: 100 mg Clindamycin Phosphate 600 mg/ (Sodium Chloride) 54 mls @ 100 mls/hr IVPB Q8H [facility] PRN Reason: Protocol Last Admin: 10/29/17 10:11 Dose: 100 mls/hr Vancomycin/Sodium Chloride (Vancomycin 1 Gm/Ns 200 Ml) 1 gm in 200 mls @ 133.333 mls/hr IVPB Q24H [facility] PRN Reason: Protocol Stop: 11/02/17 21:01 Last Admin: 10/28/17 22:00 Dose: 133.333 mls/hr Heparin Sodium/Sodium Chloride (Heparin 75186 Units/250ml 1/2 Normal Saline) 25 ,000 units in 250 mls @ 13.063 mls/hr IV .Q19H9M PRN; Protocol; 12 UNITS/KG/HR PRN Reason: PROTOCOL Last Admin: 10/29/17 11:08 Dose: 9 units/kg/hr, 9.798 mls/hr Lactobacillus Acidophilus (Bacid Acidophilus) 1 cap PO BID [facility] Last Admin: 10/29/17 10:11 Dose: 1 cap Levothyroxine Sodium (Synthroid) 50 mcg PO 0630 [facility] Last Admin: 10/29/17 06:30 Dose: 50 mcg Methylprednisolone (Solu-Medrol) 40 mg IVP Q8H [facility] Last Admin: 10/29/17 08:18 Dose: 40 mg Pantoprazole Sodium (Protonix Inj) 40 mg IVP DAILY [facility] Last Admin: 10/29/17 10:10 Dose: 40 mg Saccharomyces Boulardii (Florastor) 250 mg PO BID [facility] Last Admin: 10/29/17 10:11 Dose: 250 mg - Labs Labs: 10/29/17 07:16 10/29/17 07:16 PT 11.8 SECONDS (9.7-12.2) 10/28/17 14:06 INR 1.1 10/28/17 14:06 APTT 164 SECONDS (21-34) H* D 10/29/17 09:07
--- NOTE | 2017-10-29 18:00 | CP.PCM.PN ---
Subjective - Date & Time of Evaluation Date of Evaluation: 10/29/17 Time of Evaluation: 11:50 - Subjective Subjective: Patient seen and examined Patient states breathing is improving Afebrile Denies any chest pain Being treated for pulmonary embollism Venous Doppler of lower extremity negative for DVT Off BiPAP Objective - Vital Signs/Intake and Output Vital Signs (last 24 hours): Temp Pulse Resp BP Pulse Ox 97.5 F L 86 22 106/70 98 10/29/17 15:05 10/29/17 15:05 10/29/17 15:05 10/29/17 15:05 10/29/17 15:05 Intake and Output: 10/29/17 10/29/17 06:59 18:59 Intake Total 1120.0 788.3 Balance 1120.0 788.3 - Medications Medications: Current Medications Albuterol/Ipratropium (Duoneb 3 Mg/0.5 Mg (3 Ml) Ud) 3 ml INH RQ6 PRN PRN Reason: Shortness of Breath Last Admin: 10/28/17 07:22 Dose: 3 ml Amlodipine Besylate (Norvasc) 10 mg PO DAILY [facility] Last Admin: 10/29/17 10:11 Dose: 10 mg Clopidogrel Bisulfate (Plavix) 75 mg PO DAILY [facility] Last Admin: 10/29/17 10:11 Dose: 75 mg Furosemide (Lasix) 40 mg IVP DAILY [facility] Last Admin: 10/29/17 11:22 Dose: 40 mg Gabapentin (Neurontin) 100 mg PO TID [facility] Last Admin: 10/29/17 17:01 Dose: 100 mg Clindamycin Phosphate 600 mg/ (Sodium Chloride) 54 mls @ 100 mls/hr IVPB Q8H [facility] PRN Reason: Protocol Last Admin: 10/29/17 17:02 Dose: 100 mls/hr Vancomycin/Sodium Chloride (Vancomycin 1 Gm/Ns 200 Ml) 1 gm in 200 mls @ 133.333 mls/hr IVPB Q24H [facility] PRN Reason: Protocol Stop: 11/02/17 21:01 Last Admin: 10/28/17 22:00 Dose: 133.333 mls/hr Heparin Sodium/Sodium Chloride (Heparin 02800 Units/250ml 1/2 Normal Saline) 25 ,000 units in 250 mls @ 13.063 mls/hr IV .Q19H9M PRN; Protocol; 12 UNITS/KG/HR PRN Reason: PROTOCOL Last Admin: 10/29/17 11:08 Dose: 9 units/kg/hr, 9.798 mls/hr Lactobacillus Acidophilus (Bacid Acidophilus) 1 cap PO BID [facility] Last Admin: 10/29/17 17:01 Dose: 1 cap Levothyroxine Sodium (Synthroid) 50 mcg PO 0630 [facility] Last Admin: 10/29/17 06:30 Dose: 50 mcg Methylprednisolone (Solu-Medrol) 40 mg IVP Q8H [facility] Last Admin: 10/29/17 16:36 Dose: 40 mg Pantoprazole Sodium (Protonix Inj) 40 mg IVP DAILY [facility] Last Admin: 10/29/17 10:10 Dose: 40 mg Saccharomyces Boulardii (Florastor) 250 mg PO BID [facility] Last Admin: 10/29/17 17:01 Dose: 250 mg - Labs Labs: 10/29/17 07:16 10/29/17 07:16 PT 11.8 SECONDS (9.7-12.2) 10/28/17 14:06 INR 1.1 10/28/17 14:06 APTT 164 SECONDS (21-34) H* D 10/29/17 09:07 - Head Exam Head Exam: ATRAUMATIC, NORMOCEPHALIC - Eye Exam Eye Exam: Normal appearance - ENT Exam ENT Exam: Mucous Membranes Moist - Neck Exam Neck Exam: Normal Inspection - Respiratory Exam Respiratory Exam: Decreased Breath Sounds - Cardiovascular Exam Cardiovascular Exam: REGULAR RHYTHM - GI/Abdominal Exam GI & Abdominal Exam: Soft, Normal Bowel Sounds - Extremities Exam Extremities Exam: Pedal Edema - Neurological Exam Neurological Exam: Alert Assessment and Plan (1) Pulmonary embolism Assessment & Plan: continue IV heparin Status: Acute (2) COPD exacerbation Assessment & Plan: IV steroids and nebulizer treatment for now BiPAP as needed Status: Acute
[2017-10-29] MEDS: Vancomycin 1 gm/NS 200 ml 1 GM/200 ML BAG IVPB SCH (22:04)
--- NOTE | 2017-10-30 00:59 | PN ---
DATE: SUBJECTIVE: The patient was seen today. She was less dyspneic. She was feeling better. Head is atraumatic, normocephalic. She wanted to go home, but I told her she needs to be here. She has pulmonary embolism and otherwise she says she was feeling better and her right leg swelling persisted but cellulitis was decreasing. OBJECTIVE: VITAL SIGNS: T-max is 97.5, pulse 86, blood pressure is 106/70, respirations are 22. HEENT: Head is atraumatic and normocephalic. NECK: Supple. LUNGS: Clear. Decreased breath sounds on bases. HEART: S1, S2 is regular. Tachycardia was present. ABDOMEN: Soft, nontender. No guarding, no rigidity present. She is obese. EXTREMITIES: Had bilateral edema but cellulitis is decreasing. LABORATORY DATA: White count is 4.8, hemoglobin 11.2, hematocrit 33.1, platelet count is 227. Her BUN is 16, creatinine is 1.3, glucose is 137. Blood cultures x2 are negative. She had a vanco trough done which was 14.3, which is fine. Her cellulitis is improving. I wanted to see if she had DVT, because her V/Q scan was positive. Her labs, however, did not show any DVT. IMPRESSION AND PLAN: My impression is that cellulitis is improving, to continue vancomycin as well as clindamycin. I think in a day or so we should be able to stop the cellulitis medications and to concentrate on her swelling as well as her lung findings of pulmonary embolism. We will follow. Awais Maher MD
[2017-10-30] MEDS: MethylPREDNISolone 40 mg Vial IVP SCH ×3 (01:59→17:55)
[2017-10-30] MEDS: Levothyroxine 50 MCG TAB PO SCH (06:54)
[2017-10-30 07:00] LABS: BASO % 0.4 % (0.0-2.0); EOS % 0.1 % (0.0-4.0); HEMOGLOBIN 11.5 g/dL (11.0-16.0); LYMPH # 1.2 K/uL (1.0-4.3); LYMPH % 11.2 % (20.0-40.0); MEAN CELL VOLUME 84.3 fL (81.0-99.0); MEAN CORPUSCULAR HEMOGLOBIN 28.7 pg (27.0-31.0); MEAN PLATELET VOLUME 8.4 fL (7.2-11.7); MONO # 0.2 K/uL (0.0-0.8); MONO % 2.1 % (0.0-10.0); NEUT # 9.1 K/uL (1.8-7.0); NEUT % 86.2 % (50.0-75.0); NRBC % 0.1 % (0.0-2.0); RED CELL DISTRIBUTION WIDTH 15.1 % (11.5-14.5); WHITE BLOOD COUNT 10.5 K/uL (4.8-10.8)
[2017-10-30 07:40] LABS: ALB/GLOB RATIO 1.1 (1.0-2.1); ALBUMIN 3.8 g/dL (3.5-5.0); CALCIUM 9.6 mg/dl (8.6-10.4)
[2017-10-30 07:54] LABS: FERRITIN 16.4 ng/mL
[2017-10-30 08:25] LABS: FOLATE 7.4 ng/mL
[2017-10-30] MEDS: Saccharomyces Boulardi 250 mg Cap PO SCH ×2 (09:15→17:54)
[2017-10-30] MEDS: Lactobacillus Acidophilus 500 MU Cap PO SCH ×2 (09:16→17:54)
[2017-10-30] MEDS: Heparin25000 units/250ml 1/2NS 25,000 UNITS/250 ML BAG IV PRN (11:26)
--- NOTE | 2017-10-30 13:26 | CP.PCM.PN ---
Subjective - Date & Time of Evaluation Date of Evaluation: 10/30/17 Time of Evaluation: 11:00 - Subjective Subjective: Breathing better Objective - Vital Signs/Intake and Output Vital Signs (last 24 hours): Temp Pulse Resp BP Pulse Ox 98.1 F 111 H 20 106/65 95 10/30/17 08:35 10/30/17 12:00 10/30/17 08:35 10/30/17 09:14 10/30/17 08:35 Intake and Output: 10/30/17 10/30/17 06:59 18:59 Intake Total 125.95 250 Balance 125.95 250 - Medications Medications: Current Medications Albuterol/Ipratropium (Duoneb 3 Mg/0.5 Mg (3 Ml) Ud) 3 ml INH RQ6 PRN PRN Reason: Shortness of Breath Last Admin: 10/28/17 07:22 Dose: 3 ml Amlodipine Besylate (Norvasc) 10 mg PO DAILY [facility] Last Admin: 10/30/17 09:16 Dose: 10 mg Apixaban (Eliquis) 10 mg PO ONCE ONE Stop: 10/30/17 16:01 Clopidogrel Bisulfate (Plavix) 75 mg PO DAILY [facility] Last Admin: 10/30/17 09:16 Dose: 75 mg Furosemide (Lasix) 40 mg IVP DAILY [facility] Last Admin: 10/30/17 09:14 Dose: 40 mg Gabapentin (Neurontin) 100 mg PO TID [facility] Last Admin: 10/30/17 13:22 Dose: 100 mg Clindamycin Phosphate 600 mg/ (Sodium Chloride) 54 mls @ 100 mls/hr IVPB Q8H [facility] PRN Reason: Protocol Last Admin: 10/30/17 09:13 Dose: 100 mls/hr Vancomycin/Sodium Chloride (Vancomycin 1 Gm/Ns 200 Ml) 1 gm in 200 mls @ 133.333 mls/hr IVPB Q24H [facility] PRN Reason: Protocol Stop: 11/02/17 21:01 Last Admin: 10/29/17 22:04 Dose: 133.333 mls/hr Lactobacillus Acidophilus (Bacid Acidophilus) 1 cap PO BID [facility] Last Admin: 10/30/17 09:16 Dose: 1 cap Levothyroxine Sodium (Synthroid) 50 mcg PO 0630 [facility] Last Admin: 10/30/17 06:54 Dose: 50 mcg Methylprednisolone (Solu-Medrol) 40 mg IVP Q8H [facility] Last Admin: 10/30/17 08:43 Dose: 40 mg Pantoprazole Sodium (Protonix Inj) 40 mg IVP DAILY [facility] Last Admin: 10/30/17 09:14 Dose: 40 mg Saccharomyces Boulardii (Florastor) 250 mg PO BID [facility] Last Admin: 10/30/17 09:15 Dose: 250 mg - Labs Labs: 10/30/17 06:50 10/30/17 06:52 PT 11.8 SECONDS (9.7-12.2) 10/28/17 14:06 INR 1.1 10/28/17 14:06 APTT 100 SECONDS (21-34) H* D 10/30/17 09:01 - Head Exam Head Exam: ATRAUMATIC - Eye Exam Eye Exam: Normal appearance - ENT Exam ENT Exam: Mucous Membranes Dry - Respiratory Exam Respiratory Exam: NORMAL BREATHING PATTERN - Cardiovascular Exam Cardiovascular Exam: +S1, +S2 - GI/Abdominal Exam GI & Abdominal Exam: Normal Bowel Sounds - Extremities Exam Extremities Exam: Pedal Edema Assessment and Plan (1) Pulmonary embolism Assessment & Plan: on heparin drip outpatient David LE dopplers negative for DVT Status: Acute (2) Anemia Assessment & Plan: iron deficiency Status: Acute (3) Coagulopathy Assessment & Plan: secondary to anticoagulation Status: Acute
--- NOTE | 2017-10-30 15:03 | CP.PCM.PN ---
Subjective - Date & Time of Evaluation Date of Evaluation: 10/30/17 Time of Evaluation: 08:45 - Subjective Subjective: patient seen and examined Patient states that breathing is improving On BiPAP at night Afebrile On heparin drip Objective - Vital Signs/Intake and Output Vital Signs (last 24 hours): Temp Pulse Resp BP Pulse Ox 98.1 F 111 H 20 106/65 95 10/30/17 08:35 10/30/17 12:00 10/30/17 08:35 10/30/17 09:14 10/30/17 08:35 Intake and Output: 10/30/17 10/30/17 06:59 18:59 Intake Total 125.95 250 Balance 125.95 250 - Medications Medications: Current Medications Albuterol/Ipratropium (Duoneb 3 Mg/0.5 Mg (3 Ml) Ud) 3 ml INH RQ6 PRN PRN Reason: Shortness of Breath Last Admin: 10/28/17 07:22 Dose: 3 ml Amlodipine Besylate (Norvasc) 10 mg PO DAILY [facility] Last Admin: 10/30/17 09:16 Dose: 10 mg Apixaban (Eliquis) 10 mg PO ONCE ONE Stop: 10/30/17 16:01 Clopidogrel Bisulfate (Plavix) 75 mg PO DAILY [facility] Last Admin: 10/30/17 09:16 Dose: 75 mg Furosemide (Lasix) 40 mg IVP DAILY [facility] Last Admin: 10/30/17 09:14 Dose: 40 mg Gabapentin (Neurontin) 100 mg PO TID [facility] Last Admin: 10/30/17 13:22 Dose: 100 mg Clindamycin Phosphate 600 mg/ (Sodium Chloride) 54 mls @ 100 mls/hr IVPB Q8H [facility] PRN Reason: Protocol Last Admin: 10/30/17 09:13 Dose: 100 mls/hr Vancomycin/Sodium Chloride (Vancomycin 1 Gm/Ns 200 Ml) 1 gm in 200 mls @ 133.333 mls/hr IVPB Q24H [facility] PRN Reason: Protocol Stop: 11/02/17 21:01 Last Admin: 10/29/17 22:04 Dose: 133.333 mls/hr Lactobacillus Acidophilus (Bacid Acidophilus) 1 cap PO BID [facility] Last Admin: 10/30/17 09:16 Dose: 1 cap Levothyroxine Sodium (Synthroid) 50 mcg PO 0630 [facility] Last Admin: 10/30/17 06:54 Dose: 50 mcg Methylprednisolone (Solu-Medrol) 40 mg IVP Q8H [facility] Last Admin: 10/30/17 08:43 Dose: 40 mg Pantoprazole Sodium (Protonix Inj) 40 mg IVP DAILY [facility] Last Admin: 10/30/17 09:14 Dose: 40 mg Saccharomyces Boulardii (Florastor) 250 mg PO BID [facility] Last Admin: 10/30/17 09:15 Dose: 250 mg - Labs Labs: 10/30/17 06:50 10/30/17 06:52 PT 11.8 SECONDS (9.7-12.2) 10/28/17 14:06 INR 1.1 10/28/17 14:06 APTT 100 SECONDS (21-34) H* D 10/30/17 09:01 - Head Exam Head Exam: ATRAUMATIC, NORMOCEPHALIC - Eye Exam Eye Exam: Normal appearance - ENT Exam ENT Exam: Mucous Membranes Moist - Neck Exam Neck Exam: Normal Inspection - Respiratory Exam Respiratory Exam: Clear to Ausculation Bilateral - Cardiovascular Exam Cardiovascular Exam: REGULAR RHYTHM - GI/Abdominal Exam GI & Abdominal Exam: Soft, Normal Bowel Sounds Assessment and Plan (1) Pulmonary embolism Assessment & Plan: continue heparin drip Switched to oral anticoagulant Negative for DVT Status: Acute (2) COPD exacerbation Assessment & Plan: continue nebulizer treatment BiPAP at night and as needed Sleep study as outpatient Status: Acute
--- NOTE | 2017-10-30 16:12 | CP.PCM.PN ---
Subjective - Date & Time of Evaluation Date of Evaluation: 10/30/17 Time of Evaluation: 03:30 - Subjective Subjective: dictated Objective - Vital Signs/Intake and Output Vital Signs (last 24 hours): Temp Pulse Resp BP Pulse Ox 98.1 F 111 H 20 106/65 95 10/30/17 08:35 10/30/17 12:00 10/30/17 08:35 10/30/17 09:14 10/30/17 08:35 Intake and Output: 10/30/17 10/30/17 06:59 18:59 Intake Total 125.95 250 Balance 125.95 250 - Medications Medications: Current Medications Albuterol/Ipratropium (Duoneb 3 Mg/0.5 Mg (3 Ml) Ud) 3 ml INH RQ6 PRN PRN Reason: Shortness of Breath Last Admin: 10/28/17 07:22 Dose: 3 ml Amlodipine Besylate (Norvasc) 10 mg PO DAILY [facility] Last Admin: 10/30/17 09:16 Dose: 10 mg Clopidogrel Bisulfate (Plavix) 75 mg PO DAILY [facility] Last Admin: 10/30/17 09:16 Dose: 75 mg Furosemide (Lasix) 40 mg IVP DAILY [facility] Last Admin: 10/30/17 09:14 Dose: 40 mg Gabapentin (Neurontin) 100 mg PO TID [facility] Last Admin: 10/30/17 13:22 Dose: 100 mg Clindamycin Phosphate 600 mg/ (Sodium Chloride) 54 mls @ 100 mls/hr IVPB Q8H [facility] PRN Reason: Protocol Last Admin: 10/30/17 09:13 Dose: 100 mls/hr Vancomycin/Sodium Chloride (Vancomycin 1 Gm/Ns 200 Ml) 1 gm in 200 mls @ 133.333 mls/hr IVPB Q24H [facility] PRN Reason: Protocol Stop: 11/02/17 21:01 Last Admin: 10/29/17 22:04 Dose: 133.333 mls/hr Lactobacillus Acidophilus (Bacid Acidophilus) 1 cap PO BID [facility] Last Admin: 10/30/17 09:16 Dose: 1 cap Levothyroxine Sodium (Synthroid) 50 mcg PO 0630 [facility] Last Admin: 10/30/17 06:54 Dose: 50 mcg Methylprednisolone (Solu-Medrol) 40 mg IVP Q8H [facility] Last Admin: 10/30/17 08:43 Dose: 40 mg Pantoprazole Sodium (Protonix Inj) 40 mg IVP DAILY [facility] Last Admin: 10/30/17 09:14 Dose: 40 mg Saccharomyces Boulardii (Florastor) 250 mg PO BID [facility] Last Admin: 10/30/17 09:15 Dose: 250 mg - Labs Labs: 10/30/17 06:50 10/30/17 06:52 PT 11.8 SECONDS (9.7-12.2) 10/28/17 14:06 INR 1.1 10/28/17 14:06 APTT 100 SECONDS (21-34) H* D 10/30/17 09:01
--- NOTE | 2017-10-30 18:30 | CP.PCM.DIS ---
<Tiffanie Villa - Last Filed: 10/30/17 18:23> Provider - Provider Date of Admission: 10/27/17 18:14 Attending physician: Lashon Duong DO Primary care physician: Dr. Felice Hall Consults: Heme/ Onc (Dinh) ID (Gunnar) Pulm (Jaylan) Time Spent in preparation of Discharge (in minutes): 45 Diagnosis - Discharge Diagnosis (1) Pulmonary embolism Status: Acute (2) Cellulitis Status: Resolved (3) HTN (hypertension) Status: Chronic (4) Hypothyroid Status: Chronic (5) CKD (chronic kidney disease) Status: Chronic Hospital Course - Lab Results Lab Results: Micro Results 10/27/17 15:30 Blood Blood Culture - Preliminary NO GROWTH AFTER 3 DAYS 10/27/17 16:00 Blood Blood Culture - Preliminary NO GROWTH AFTER 3 DAYS 10/28/17 18:28 Urine,Clean Catch Urine Culture - Final <10,000 CFU/ML. MULTIPLE SPECIES. PROBABLE CONTAMINATION. Most Recent Lab Values WBC 10.5 K/uL (4.8-10.8) D 10/30/17 06:50 RBC 4.00 Mil/uL (3.80-5.20) 10/30/17 06:50 Hgb 11.5 g/dL (11.0-16.0) 10/30/17 06:50 Hct 33.7 % (34.0-47.0) L 10/30/17 06:50 MCV 84.3 fL (81.0-99.0) 10/30/17 06:50 MCH 28.7 pg (27.0-31.0) 10/30/17 06:50 MCHC 34.0 g/dL (33.0-37.0) 10/30/17 06:50 RDW 15.1 % (11.5-14.5) H 10/30/17 06:50 Plt Count 212 K/uL (130-400) 10/30/17 06:50 MPV 8.4 fL (7.2-11.7) 10/30/17 06:50 Neut % (Auto) 86.2 % (50.0-75.0) H 10/30/17 06:50 Lymph % (Auto) 11.2 % (20.0-40.0) L 10/30/17 06:50 [place] % (Auto) 2.1 % (0.0-10.0) 10/30/17 06:50 Eos % (Auto) 0.1 % (0.0-4.0) 10/30/17 06:50 Baso % (Auto) 0.4 % (0.0-2.0) 10/30/17 06:50 Neut # (Auto) 9.1 K/uL (1.8-7.0) H 10/30/17 06:50 Lymph # (Auto) 1.2 K/uL (1.0-4.3) 10/30/17 06:50 [place] # (Auto) 0.2 K/uL (0.0-0.8) 10/30/17 06:50 Eos # (Auto) 0.0 K/uL (0.0-0.7) 10/30/17 06:50 Baso # (Auto) 0.0 K/uL (0.0-0.2) 10/30/17 06:50 Retic Count 1.4 % (0.5-1.5) 10/30/17 06:50 PT 11.8 SECONDS (9.7-12.2) 10/28/17 14:06 INR 1.1 10/28/17 14:06 APTT 100 SECONDS (21-34) H* D 10/30/17 09:01 D-Dimer, Quantitative 719 ng/mlDDU (0-243) H 10/27/17 20:55 Puncture Site Rradial 10/27/17 20:45 pCO2 35 mm/Hg (35-45) 10/27/17 20:45 pO2 69 mm/Hg (80-100) L 10/27/17 20:45 HCO3 23.8 mmol/L (21-28) 10/27/17 20:45 ABG pH 7.42 (7.35-7.45) 10/27/17 20:45 ABG Total CO2 23.8 mmol/L (22-28) 10/27/17 20:45 ABG O2 Saturation 96.8 % (95-98) 10/27/17 20:45 ABG Base Excess -1.3 mmol/L (-2.0-3.0) 10/27/17 20:45 Mohsen Test Pos 10/27/17 20:45 ABG Potassium 3.9 mmol/L (3.6-5.2) 10/27/17 20:45 Sodium 143.0 mmol/l (132-148) 10/27/17 20:45 Chloride 117.0 mmol/L (98-107) H 10/27/17 20:45 Glucose 100 mg/dl (65-105) 10/27/17 20:45 Lactate 0.9 mmol/L (0.7-2.1) 10/27/17 20:45 Sodium 142 mmol/L (132-148) 10/30/17 06:52 Potassium 5.1 mmol/L (3.6-5.2) 10/30/17 06:52 Chloride 108 mmol/L (98-107) H 10/30/17 06:52 Carbon Dioxide 23 mmol/L (22-30) 10/30/17 06:52 Anion Gap 17 (10-20) 10/30/17 06:52 BUN 29 mg/dL (7-17) H 10/30/17 06:52 Creatinine 1.6 mg/dL (0.7-1.2) H 10/30/17 06:52 Est GFR ( Amer) 37 10/30/17 06:52 Est GFR (Non-Af Amer) 31 10/30/17 06:52 Random Glucose 135 mg/dL (65-105) H 10/30/17 06:52 Hemoglobin A1c 5.7 % (4.2-6.5) 10/28/17 07:28 Calcium 9.6 mg/dl (8.6-10.4) 10/30/17 06:52 Phosphorus 4.8 mg/dL (2.5-4.5) H 10/30/17 06:52 Magnesium 2.3 mg/dL (1.6-2.3) 10/30/17 06:52 Ferritin 16.4 ng/mL 10/30/17 06:52 Total Bilirubin 1.0 mg/dL (0.2-1.3) 10/30/17 06:52 AST 31 U/L (14-36) 10/30/17 06:52 ALT 17 U/L (9-52) 10/30/17 06:52 Alkaline Phosphatase 85 U/L (38-126) 10/30/17 06:52 Total Creatine Kinase 74 U/L (30-135) 10/27/17 14:28 CK-MB (Mass) 0.93 ng/mL (0.0-3.38) 10/27/17 14:28 Troponin I < 0.0120 ng/mL (0.00-0.120) 10/27/17 14:28 NT-Pro-B Natriuret Pep 271 pg/mL (0-900) 10/27/17 14:28 Total Protein 7.3 g/dL (6.3-8.3) 10/30/17 06:52 Albumin 3.8 g/dL (3.5-5.0) 10/30/17 06:52 Globulin 3.5 gm/dL (2.2-3.9) 10/30/17 06:52 Albumin/Globulin Ratio 1.1 (1.0-2.1) 10/30/17 06:52 Triglycerides 111 mg/dL (0-149) 10/28/17 07:28 Cholesterol 164 mg/dL (0-199) 10/28/17 07:28 LDL Cholesterol Direct 94 mg/dL (0-129) 10/28/17 07:28 HDL Cholesterol 54 mg/dL (30-70) 10/28/17 07:28 Vitamin B12 341 pg/mL (239-931) 10/30/17 06:52 Folate 7.4 ng/mL 10/30/17 06:52 Procalcitonin < 0.05 NG/ML (0.19-0.49) L 10/27/17 19:31 Free T4 1.23 ng/dL (0.78-2.19) 10/28/17 08:01 TSH 3rd Generation 7.73 mIU/L (0.46-4.68) H 10/28/17 07:28 Arterial Blood Potassium 3.9 mmol/L (3.6-5.2) 10/27/17 20:45 Urine Color Yellow (YELLOW) 10/27/17 20:44 Urine Clarity Clear (Clear) 10/27/17 20:44 Urine pH 6.0 (5.0-8.0) 10/27/17 20:44 Ur Specific [place] 1.012 (1.003-1.030) 10/27/17 20:44 Urine Protein Negative mg/dL (NEGATIVE) 10/27/17 20:44 Urine Glucose (UA) Normal mg/dL (Normal) 10/27/17 20:44 Urine Ketones Negative mg/dL (NEGATIVE) 10/27/17:44 Urine Blood Negative (NEGATIVE) 10/27/17 20:44 Urine Nitrate Positive (NEGATIVE) H 10/27/17 20:44 Urine Bilirubin Negative (NEGATIVE) 10/27/17 20:44 Urine Urobilinogen Normal mg/dL (0.2-1.0) 10/27/17 20:44 Ur Leukocyte Esterase Trace Vanesa/uL (Negative) 10/27/17 20:44 Urine WBC (Auto) 12 /hpf (0-5) H 10/27/17 20:44 Urine RBC (Auto) < 1 /hpf (0-3) 10/27/17:44 Ur Squamous Epith Cells 1 /hpf (0-5) 10/27/17:44 Urine Bacteria Few (<OCC) H 10/27/17 20:44 Hyaline Casts 3-5 /lpf (0-2) H 10/27/17 20:44 Vancomycin Trough 14.3 ug/mL (5.0-10.0) H 10/29/17 18:09 - Hospital Course Hospital Course: HPI: "Patient is an 81 year old female with PMHx of asthma, HTN, hypothyroidism , kidney infections, mini stroke, and cellulitis presents today for worsening lower extremity edema, erythema, and pain. Patient says the swelling started 4 weeks ago and has progressively gotten worse. Patient went to [facility] about 1 week ago and was given antibiotics (does not remember the name ) which did not help. Patient went to her PMD, Dr. Hall on October 22 and was given Clindamycin 300mg po TID for 10 days which she said was not helping. Patient's legs were causing her so much pain and because they were not getting any better she came to the ED. Normally patient can ambulate and do most of her ADLs, but gets help from her daughter whom she lives with. Patient says that the swelling and pain in her legs did not change how much she could ambulate. Patient also admits to shortness of breath which she says is chronic for her. Normally she uses her Ventolin inhaler about 3 times per day and her nebulizer treatments twice a day. Patient says she sleeps on 2 pillows at night. Patient denies having a cough. Patient says she is short of breath even at rest. Patient admits to diffuse abdominal pain. Patient usually wears a diaper at home and says she gets kidney infections often. Patient denies any fevers, chills, headaches, chest pain, nausea, vomiting, diarrhea or constipation. " Patient was admitted for LE cellulitis that failed out patient treatment. The patient's D-Dimer was 719. A V/Q Scan was done on 10/27 and showed a high probability for PE. Pt was started on Heparin Drip. Dr. Tao from Hemetology/ Oncology and Dr. Tian from Pulmonology was consulted. PTT was monitored. The patient's shortness of breath was treated with Prednisone 40 mg IVP Q8h and Duonebs Q[address] Tian from Pulmonology was consulted. A pH: 7.42 pCO2: 35, pO2: 69 was found on an ABG. Patient was treated with CPAP HS. The patient's Bilateral Lower Extremity Cellulitis was treated with Vancomycin 1 gm Q24 and Clindamycin [address] Maher from Infectious Disease was consulted and ordered the change from Vancomycin 1 gm Q12h to Q24 through 30 mins before Evening dose. Pt was also given Florastor PO BID and Lasix 40 mg IVP Daily on 10/29. The cellulitis on the legs was outlined and inspected daily. A doppler of the lower extremities was done and found no Deep Vein Thrombosis. Patient's LE erythema and edema resolved. As per Dr. Maher, antibiotics were stopped. The patient was was hypotensive on admission so home medications were held. Patient was continued on her home medication Synthroid 50mcg PO daily. The patients free T4 was found to be 1.01 and TSH to be 7.73 The patient's medication were renally dosed in light of chronic kidney disease. The patients GFR was 43 compared to GFR 29, BUN 8, Cr 1.64 in June as per PMD 's Office. A urine analysis was obtained and was positive for Nitrates, 12 WBC, few bacteria, 3-5 hyaline casts. There was no CVA tenderness. Urine culture was contaminted. UA and UC were not repeated because patient already on antibiotics for LE Cellulitis. Patient was continued on Clopidogrel 75 mg PO Daily for history of TIA. Patient's TSH was 7.73, Free T4: 1.23, T, Cholesterol: 164, LDL: 94, HDL: 54, and HgBA1C: 5.7 Patient was continued on home medication Gabapentin 100mg PO TID for Chronic Low Back Pain For prophylaxis patient was already on a heparin drip so no additional VTE prophylaxis needed, received PT/OT, ate a heart healthy low sodium diet. GI prophylaxis was not indicated in this patient. This is a summary of the patient's hospital course. please see chart for details. Discharge Exam - Additional Findings Additional findings: - Constitutional Appears: Non-toxic, No Acute Distress - Head Exam Head Exam: ATRAUMATIC, NORMAL INSPECTION, NORMOCEPHALIC - Eye Exam Eye Exam: EOMI, Normal appearance - ENT Exam ENT Exam: Mucous Membranes Moist - Respiratory Exam Respiratory Exam: Decreased Breath Sounds. absent: NORMAL BREATHING PATTERN ( tachypnea) - Cardiovascular Exam Cardiovascular Exam: REGULAR RHYTHM, RRR - GI/Abdominal Exam GI & Abdominal Exam: Normal Bowel Sounds, Soft absent: Distended, Tenderness - Extremities Exam Extremities exam: Positive for: pedal edema, tenderness Additional comments: b/l non pitting edema resolving erythema resolved from LE - Back Exam Back exam: absent: CVA tenderness (L), CVA tenderness (R) - Neurological Exam Neurological exam: Alert, Oriented x3 - Psychiatric Exam Psychiatric exam: Normal Affect, Normal Mood - Skin Skin Exam: No Erythema, Warm, Dry Discharge Plan - Discharge Medications Prescriptions: Apixaban [Eliquis] 10 mg PO BID 7 Days tablet Apixaban [Eliquis] 5 mg PO BID #60 tab - Follow Up Plan Condition: FAIR Disposition: REHAB FACILITY/REHAB UNIT Instructions: Heart Healthy Diet, Swelling, Pulmonary Embolism (Blood Clot in the Lungs) (DC), Exacerbation of COPD (DC) Additional Instructions: Patient stable to discharge to [facility]. Patient will need to follow up with Dr. Hall within 2 weeks. Patient to take medications as prescribed. Patient will need CPAP at night at [facility]. Patient to return to ED if symptoms return/ worse. Referrals: Felice Hall MD [Medical Doctor] - <Lashon Duong V - Last Filed: 10/30/17 21:13> Provider - Provider Date of Admission: 10/27/17 18:14 Attending physician: Lashon Duong, [facility] Course - Lab Results Lab Results: Micro Results 10/27/17 15:30 Blood Blood Culture - Preliminary NO GROWTH AFTER 3 DAYS 10/27/17 16:00 Blood Blood Culture - Preliminary NO GROWTH AFTER 3 DAYS 10/28/17 18:28 Urine,Clean Catch Urine Culture - Final <10,000 CFU/ML. MULTIPLE SPECIES. PROBABLE CONTAMINATION. Most Recent Lab Values WBC 10.5 K/uL (4.8-10.8) D 10/30/17 06:50 RBC 4.00 Mil/uL (3.80-5.20) 10/30/17 06:50 Hgb 11.5 g/dL (11.0-16.0) 10/30/17 06:50 Hct 33.7 % (34.0-47.0) L 10/30/17 06:50 MCV 84.3 fL (81.0-99.0) 10/30/17 06:50 MCH 28.7 pg (27.0-31.0) 10/30/17 06:50 MCHC 34.0 g/dL (33.0-37.0) 10/30/17 06:50 RDW 15.1 % (11.5-14.5) H 10/30/17 06:50 Plt Count 212 K/uL (130-400) 10/30/17 06:50 MPV 8.4 fL (7.2-11.7) 10/30/17 06:50 Neut % (Auto) 86.2 % (50.0-75.0) H 10/30/17 06:50 Lymph % (Auto) 11.2 % (20.0-40.0) L 10/30/17 06:50 [place] % (Auto) 2.1 % (0.0-10.0) 10/30/17 06:50 Eos % (Auto) 0.1 % (0.0-4.0) 10/30/17 06:50 Baso % (Auto) 0.4 % (0.0-2.0) 10/30/17 06:50 Neut # (Auto) 9.1 K/uL (1.8-7.0) H 10/30/17 06:50 Lymph # (Auto) 1.2 K/uL (1.0-4.3) 10/30/17 06:50 [place] # (Auto) 0.2 K/uL (0.0-0.8) 10/30/17 06:50 Eos # (Auto) 0.0 K/uL (0.0-0.7) 10/30/17 06:50 Baso # (Auto) 0.0 K/uL (0.0-0.2) 10/30/17 06:50 Retic Count 1.4 % (0.5-1.5) 10/30/17 06:50 PT 11.8 SECONDS (9.7-12.2) 10/28/17 14:06 INR 1.1 10/28/17 14:06 APTT 100 SECONDS (21-34) H* D 10/30/17 09:01 D-Dimer, Quantitative 719 ng/mlDDU (0-243) H 10/27/17 20:55 Puncture Site Rradial 10/27/17 20:45 pCO2 35 mm/Hg (35-45) 10/27/17 20:45 pO2 69 mm/Hg (80-100) L 10/27/17 20:45 HCO3 23.8 mmol/L (21-28) 10/27/17 20:45 ABG pH 7.42 (7.35-7.45) 10/27/17 20:45 ABG Total CO2 23.8 mmol/L (22-28) 10/27/17 20:45 ABG O2 Saturation 96.8 % (95-98) 10/27/17 20:45 ABG Base Excess -1.3 mmol/L (-2.0-3.0) 10/27/17 20:45 Mohsen Test Pos 10/27/17 20:45 ABG Potassium 3.9 mmol/L (3.6-5.2) 10/27/17 20:45 Sodium 143.0 mmol/l (132-148) 10/27/17 20:45 Chloride 117.0 mmol/L (98-107) H 10/27/17 20:45 Glucose 100 mg/dl (65-105) 10/27/17 20:45 Lactate 0.9 mmol/L (0.7-2.1) 10/27/17 20:45 Sodium 142 mmol/L (132-148) 10/30/17 06:52 Potassium 5.1 mmol/L (3.6-5.2) 10/30/17 06:52 Chloride 108 mmol/L (98-107) H 10/30/17 06:52 Carbon Dioxide 23 mmol/L (22-30) 10/30/17 06:52 Anion Gap 17 (10-20) 10/30/17 06:52 BUN 29 mg/dL (7-17) H 10/30/17 06:52 Creatinine 1.6 mg/dL (0.7-1.2) H 10/30/17 06:52 Est GFR ( Amer) 37 10/30/17 06:52 Est GFR (Non-Af Amer) 31 10/30/17 06:52 Random Glucose 135 mg/dL (65-105) H 10/30/17 06:52 Hemoglobin A1c 5.7 % (4.2-6.5) 10/28/17 07:28 Calcium 9.6 mg/dl (8.6-10.4) 10/30/17 06:52 Phosphorus 4.8 mg/dL (2.5-4.5) H 10/30/17 06:52 Magnesium 2.3 mg/dL (1.6-2.3) 10/30/17 06:52 Ferritin 16.4 ng/mL 10/30/17 06:52 Total Bilirubin 1.0 mg/dL (0.2-1.3) 10/30/17 06:52 AST 31 U/L (14-36) 10/30/17 06:52 ALT 17 U/L (9-52) 10/30/17 06:52 Alkaline Phosphatase 85 U/L (38-126) 10/30/17 06:52 Total Creatine Kinase 74 U/L (30-135) 10/27/17 14:28 CK-MB (Mass) 0.93 ng/mL (0.0-3.38) 10/27/17 14:28 Troponin I < 0.0120 ng/mL (0.00-0.120) 10/27/17 14:28 NT-Pro-B Natriuret Pep 271 pg/mL (0-900) 10/27/17 14:28 Total Protein 7.3 g/dL (6.3-8.3) 10/30/17 06:52 Albumin 3.8 g/dL (3.5-5.0) 10/30/17 06:52 Globulin 3.5 gm/dL (2.2-3.9) 10/30/17 06:52 Albumin/Globulin Ratio 1.1 (1.0-2.1) 10/30/17 06:52 Triglycerides 111 mg/dL (0-149) 10/28/17 07:28 Cholesterol 164 mg/dL (0-199) 10/28/17 07:28 LDL Cholesterol Direct 94 mg/dL (0-129) 10/28/17 07:28 HDL Cholesterol 54 mg/dL (30-70) 10/28/17 07:28 Vitamin B12 341 pg/mL (239-931) 10/30/17 06:52 Folate 7.4 ng/mL 10/30/17 06:52 Procalcitonin < 0.05 NG/ML (0.19-0.49) L 10/27/17 19:31 Free T4 1.23 ng/dL (0.78-2.19) 10/28/17 08:01 TSH 3rd Generation 7.73 mIU/L (0.46-4.68) H 10/28/17 07:28 Arterial Blood Potassium 3.9 mmol/L (3.6-5.2) 10/27/17 20:45 Urine Color Yellow (YELLOW) 10/27/17 20:44 Urine Clarity Clear (Clear) 10/27/17 20:44 Urine pH 6.0 (5.0-8.0) 10/27/17 20:44 Ur Specific [place] 1.012 (1.003-1.030) 10/27/17 20:44 Urine Protein Negative mg/dL (NEGATIVE) 10/27/17 20:44 Urine Glucose (UA) Normal mg/dL (Normal) 10/27/17 20:44 Urine Ketones Negative mg/dL (NEGATIVE) 10/27/17 20:44 Urine Blood Negative (NEGATIVE) 10/27/17 20:44 Urine Nitrate Positive (NEGATIVE) H 10/27/17 20:44 Urine Bilirubin Negative (NEGATIVE) 10/27/17 20:44 Urine Urobilinogen Normal mg/dL (0.2-1.0) 10/27/17 20:44 Ur Leukocyte Esterase Trace Vanesa/uL (Negative) 10/27/17 20:44 Urine WBC (Auto) 12 /hpf (0-5) H 10/27/17 20:44 Urine RBC (Auto) < 1 /hpf (0-3) 10/27/17 20:44 Ur Squamous Epith Cells 1 /hpf (0-5) 10/27/17 20:44 Urine Bacteria Few (<OCC) H 10/27/17 20:44 Hyaline Casts 3-5 /lpf (0-2) H 10/27/17 20:44 Vancomycin Trough 14.3 ug/mL (5.0-10.0) H 10/29/17 18:09 Attending/Attestation - Attestation I have personally seen and examined this patient.: Yes I have fully participated in the care of the patient.: Yes I have reviewed all pertinent clinical information, including history, physical exam and plan: Yes Notes (Text): Patient seen and examined with resident at bedside this morning. Patient reports she is feeling better and breathing better. Patient reporting the CPAP at night is helping her with the breathing. Patient is on heparin drip; following conversation with heme-oncology will start on Eliquis 10mg PO BID for initial dosing for PE and will eventually need Eliquis 5mg PO BID as maintenance dose. Venous dopplers ruled out DVT. Resident has spoken with infectious disease, patient does not need antibiotics on discharge. Cellulitis has cleared in both legs. Patient had been on IV antibiotics since admission. Physical therapy recommends for NICHOLAS for the patient. Patient is amenable for NICHOLAS. Medication reconciled on discharge. Patient to continue her albuterol, norvasc, plavix, gabapentin,. Patient to take prednsione 40mg for day 5days. Patient's solumedrol discontinued. Patient to take Eliquis 10mg PO BID for 7 days; then Eliquis 5mg PO BID for treatment of pulmonary embolus. Patient to f/u with her PMD in 2 weeks. This is a summary of patient's hospitalization. Please see EMR for further details. Discharge Diagnoses: 1. B/L LE cellulitis--->Resolved * Infectious Disease (Dr. Maher) electronic drafter-->help appreciated * In the ED, Patient received first dose of Vancomycin and Clindamycin. * Antibiotics discontinued on discharged. Patient had received Vanco 1gm q24h and Clindamycin 600mg ivpb q8h. * c/w lorastor po BID * outline cellulitis on legs--> resolved * Venous dopplers completed-->ruled out 2. Shortness of breath COPD Obstructive Sleep Apnea Pulmonary Embolus * Transfer to telemetry for elevated d-dimer; and PE on V/Q scan * Pulmonary (Dr. Tian) on board-->help appreciated * Hematology-oncology (Dr. Tao) on board-->help appreciated * EKG; Troponin negative. Probnp not elevated * Echocardiogram (10/28/17) * normal LV systolic function, diastolic dysfunction, normal chamber size, trace MR, mild TR * Duonebs q6h prn shortness of breathe; given stat dose of Duoneb in ED * V/Q shows high probability of PE * Patient to take Eliquis 10mg PO BID for 7 days; then Eliquis 5mg PO BID for treatment of pulmonary embolus * patient to take Predisone 40mg PO daily for 5 days on discharge. 3. HTN, hx of * Patient is borderline hypotensive on admission * Blood pressure improved; restart Norvasc 10mg PO daily 4. Hypothyroidism * continue Synthroid 50mcg po daily * Elevated TSH, normal Free T4 5. Acute on Chronic Kidney Disease * Jun 2017-->GFR: 29 and creatinine 1.6 * Will renally dose meds 6. Hx TIA * continue Clopidogrel 75mg po daily 7. Hx of Asthma/COPD * portable cxray: no active disease, poor inspiratory effort * c/w nebulizers and steroids PO 8. Hx of kidney infections; hx of urinary incontinence * Patient wears diapers. There is no infection in the intrigenous folds on my exam. negative suprapubic tendernes, negative b/l CVA tenderness * Urine culture contamined * UA shows pyuria, nitrate, and bacteria 9.Impaired glucose intolerance * hgba1c:5.7-->will need diet and exercise modifcations 10. Prophylaxis * PT/OT * protonix for GI ppx * Heart healthy low sodium diet * Eliquis for treatment of PE
[2017-10-30] MEDS ORDERED: MethylPREDNISolone 40 mg Vial IVP SCH ×2 (21:00)
--- NOTE | 2017-10-30 21:05 | PN ---
DATE: 10/29/2017 SUBJECTIVE: I went to see Krishan today. She is breathing better and she is going home, she is supposed to be on BiPAP, but she denies any leg pains at this time, still remains with edema. She says she is going to go home today, and she does complain of lot of gas. There is no redness in her legs except for edema, and she is obese. PHYSICAL EXAMINATION: VITAL SIGNS: Her BMI is 45 plus, T-max is 98.1, pulse 81, blood pressure 106/65, respirations are 20. HEENT: Head is atraumatic, normocephalic. NECK: Supple. LUNGS: Decreased breath sounds bilaterally. HEART: S1 and S2 are regular. ABDOMEN: Soft, nontender. No guarding, no rigidity present. EXTREMITIES: Bilateral obesity and edema, maybe, but no redness, no warmth. LABORATORY DATA: Her labs show white count is 10.5, hemoglobin 11.5, hematocrit 33.5, platelet count is 212. Her chemistry shows BUN is 29, creatinine is 1.6, which is increasing but at this time, she is on clindamycin and vancomycin which will both be discontinued, and to monitor the creatinine as outpatient. She is also on Lasix. IMPRESSION: She came in with right leg cellulitis which was extending up to the thigh. She is negative for DVT but upon positive V/Q scan, suggest at this time that she has had clindamycin in the past and has mild acute renal insufficiency to discontinue vancomycin and clindamycin, to keep her on pulmonary embolism treatment, and to follow the creatinine and she is cleared from infectious disease point. Awais Maher MD
[2017-10-30] MEDS: Vancomycin 1 gm/NS 200 ml 1 GM/200 ML BAG IVPB SCH (21:26)
[2017-10-31 02:04] VITALS: RESP 20
[2017-10-31] MEDS: Levothyroxine 50 MCG TAB PO SCH (05:40)
[2017-10-31 08:28] VITALS: PULSE 71; TEMP 97.8
--- NOTE | 2017-10-31 10:28 | CP.PCM.PN ---
Subjective - Date & Time of Evaluation Date of Evaluation: 10/31/17 Time of Evaluation: 08:00 - Subjective Subjective: Patient seen and examined Sitting comfortably in no acute distress Awaiting to be discharged To subacute Continue nebulizer treatment Continue BiPAP Will need sleep study as outpatient Objective - Vital Signs/Intake and Output Vital Signs (last 24 hours): Temp Pulse Resp BP Pulse Ox 97.8 F 71 20 149/82 96 10/31/17 08:27 10/31/17 08:27 10/31/17 08:27 10/31/17 08:27 10/31/17 08:27 Intake and Output: 10/31/17 10/31/17 06:59 18:59 Intake Total 100 Balance 100 - Medications Medications: Current Medications Albuterol/Ipratropium (Duoneb 3 Mg/0.5 Mg (3 Ml) Ud) 3 ml INH RQ6 PRN PRN Reason: Shortness of Breath Last Admin: 10/28/17 07:22 Dose: 3 ml Amlodipine Besylate (Norvasc) 10 mg PO DAILY [facility] Last Admin: 10/30/17 09:16 Dose: 10 mg Apixaban (Eliquis) 10 mg PO BID MAR Clopidogrel Bisulfate (Plavix) 75 mg PO DAILY [facility] Last Admin: 10/30/17 09:16 Dose: 75 mg Famotidine (Pepcid) 20 mg PO DAILY MAR Furosemide (Lasix) 40 mg PO DAILY [facility] Gabapentin (Neurontin) 100 mg PO TID [facility] Last Admin: 10/30/17 17:54 Dose: 100 mg Clindamycin Phosphate 600 mg/ (Sodium Chloride) 54 mls @ 100 mls/hr IVPB Q8H MAR PRN Reason: Protocol Last Admin: 10/31/17 02:30 Dose: Not Given Vancomycin/Sodium Chloride (Vancomycin 1 Gm/Ns 200 Ml) 1 gm in 200 mls @ 133.333 mls/hr IVPB Q24H MAR PRN Reason: Protocol Stop: 11/02/17 21:01 Last Admin: 10/30/17 21:26 Dose: Not Given Lactobacillus Acidophilus (Bacid Acidophilus) 1 cap PO BID [facility] Last Admin: 10/30/17 17:54 Dose: 1 cap Levothyroxine Sodium (Synthroid) 50 mcg PO 0630 [facility] Last Admin: 10/31/17 05:40 Dose: 50 mcg Prednisone (Prednisone Tab) 40 mg PO DAILY [facility] Stop: 11/05/17 10:01 Saccharomyces Boulardii (Florastor) 250 mg PO BID [facility] Last Admin: 10/30/17 17:54 Dose: 250 mg - Labs Labs: 10/30/17 06:50 10/30/17 06:52 PT 11.8 SECONDS (9.7-12.2) 10/28/17 14:06 INR 1.1 10/28/17 14:06 APTT 100 SECONDS (21-34) H* D 10/30/17 09:01 Assessment and Plan (1) Pulmonary embolism Status: Acute (2) COPD exacerbation Status: Acute
[2017-10-31] MEDS: Saccharomyces Boulardi 250 mg Cap PO SCH (10:30)
[2017-10-31 10:31] VITALS: BP 138/75
[2017-10-31] MEDS: Lactobacillus Acidophilus 500 MU Cap PO SCH (10:31)
[2017-11-01 13:40] VITALS: O2SAT 99
== END 2017-10-31 17:00 | DRG 602 ==
LOC: C.ER 13:44 → C.9E 18:14 → C.3T 21:54 → C.9E 22:10 → C.6T 22:38
PROVIDERS: ADMIT Hospitalist; ATTEND Hospitalist
DX: L03.115 Cellulitis of right lower limb (principal); I26.99 Other pulmonary embolism without acute cor pulmonale; Z68.41 Body mass index [BMI] 40.0-44.9, adult; D68.9 Coagulation defect, unspecified; J44.1 Chronic obstructive pulmonary disease with (acute) exacerbation; L03.116 Cellulitis of left lower limb; N18.9 Chronic kidney disease, unspecified; Z79.02 Long term (current) use of antithrombotics/antiplatelets; Z86.73 Personal history of transient ischemic attack (TIA), and cerebral infarction without residual deficits; Z87.891 Personal history of nicotine dependence; Z88.0 Allergy status to penicillin; R09.02 Hypoxemia; I10 Essential (primary) hypertension; G89.29 Other chronic pain; G47.33 Obstructive sleep apnea (adult) (pediatric); E78.00 Pure hypercholesterolemia, unspecified; E66.01 Morbid (severe) obesity due to excess calories; E03.9 Hypothyroidism, unspecified; E74.39 Other disorders of intestinal carbohydrate absorption; D64.9 Anemia, unspecified; I51.7 Cardiomegaly

== ENCOUNTER 2017-12-09 10:12 | Emergency (ER) | payer MEDICARE, MEDICAID ==
--- NOTE | 2017-12-09 10:41 | C.PDOC ---
History Of Present Illness POOR HISTORIAN PER FAMILY, AMS SINCE DC FROM REHAB 20 DAYS AGO. PMHx of PE, chronic kidney disease, asthma, HTN, hypothyroidism, kidney infections, mini stroke, and cellulitis. Patient was continued on home medication Gabapentin 100mg PO TID for Chronic Low Back Pain EXAM NAD NONTOXIC HEENT ATRAUM EXT 2+ EDEMA B/L NO ERTHEMA NEURO ALERT INTERACTIVE APPROPRIATE; NO GROSS FOCAL DEF. LUNGS CTA B/L NO W/R/R Time Seen by Provider: 12/09/17 10:35 Chief Complaint (Nursing): Weakness/Neurological Deficit History Per: Family History/Exam Limitations: Clinical Condition Onset Of Symptoms: Other (20 days) Current Symptoms Are (Timing): Still Present Exacerbating Factor(s): Unknown Past Medical History Reviewed: Historical Data, Nursing Documentation, Vital Signs Vital Signs: Last Vital Signs Temp Pulse 72 12/09/17 10:16 Resp 18 12/09/17 10:16 BP 115/61 12/09/17 10:16 Pulse Ox 98 12/09/17 12:24 - Medical History PMH: Asthma, HTN, Hypercholesterolemia, Hypothyroidism Denies: Chronic Kidney Disease Surgical History: No Surg Hx Family History: States: No Known Family Hx - Social History Hx Alcohol Use: No Hx Substance Use: No Review Of Systems Review Of Systems: ROS cannot be obtained secondary to pt's inabilty to answer questions. (clinical condition) Physical Exam - Physical Exam Appears: Non-toxic, No Acute Distress Skin: Warm, Dry Head: Atraumatic, Normacephalic Eye(s): bilateral: Normal Inspection, PERRL, EOMI Nose: Normal Neck: Normal ROM, Supple Chest: Symmetrical Cardiovascular: Rhythm Regular Respiratory: Normal Breath Sounds, No Rales, No Rhonchi, No Wheezing Gastrointestinal/Abdominal: Normal Exam, Soft, No Tenderness Extremity: Normal ROM, Pedal Edema (2+ bilaterally, no erythema) Neurological/Psych: Normal Speech, Normal Cognition, Normal Motor, Normal Sensation, Other (alert and interactive) ED Course And Treatment - Laboratory Results Result Diagrams: 12/09/17 10:42 12/09/17 10:42 ECG: Interpreted By Me ECG Rhythm: Sinus Rhythm ECG Interpretation: Normal Rate From EC O2 Sat by Pulse Oximetry: 98 (RA) Pulse Ox Interpretation: Normal - Radiology CXR: Interpreted by Me CXR Interpretation: Yes: Other (unchanged compared to prior) Progress - Re-Evaluation Re-evaluation Note: 12/09/17 12:23 FAMILY AT BEDSIDE. PT REQUESTING FOOD DESPITE CO NO APPETITE. RESULTS REVIEWED, NO ACUTE OR IMPROVED COMPARED TO PRIOR. D/W W PT, FAMILY. PT OFFERED ADMISSION FOR POSSIBLE NH PLACEMENT DUE TO CONCERN FOR MALAISE AND FATIGUE, DEC APPETITE. PT REFUSING ADMISSION, ADVISED TO FU PMD - Data Reviewed Data Reviewed: Lab, Diagnostic imaging, EKG, Old records Disposition Counseled Patient/Family Regarding: Studies Performed, Diagnosis, Need For Followup - Disposition Referrals: YOUR,PMD [Other] Disposition: HOME/ ROUTINE Disposition Time: 12:24 Condition: GOOD Instructions: Generalized Weakness (DC) Forms: [employer] (Malay) Print Language: UKRAINIAN - Clinical Impression Clinical Impression: Malaise - Scribe Statement The provider has reviewed the documentation as recorded by the Scribe (Saray Trejo) Provider Attestation: All medical record entries made by the Scribe were at my direction and personally dictated by me. I have reviewed the chart and agree that the record accurately reflects my personal performance of the history, physical exam, medical decision making, and the department course for this patient. I have also personally directed, reviewed, and agree with the discharge instructions and disposition.
[2017-12-09 10:49] LABS: BASO # 0.1 K/uL (0.0-0.2); BASO % 0.9 % (0.0-2.0); EOS # 0.1 K/uL (0.0-0.7); EOS % 1.1 % (0.0-4.0); HEMOGLOBIN 11.8 g/dL (11.0-16.0); LYMPH # 2.1 K/uL (1.0-4.3); LYMPH % 23.7 % (20.0-40.0); MEAN CELL VOLUME 83.6 fL (81.0-99.0); MEAN CORPUSCULAR HEMOGLOBIN 27.9 pg (27.0-31.0); MEAN CORPUSCULAR HGB CONC 33.4 g/dL (33.0-37.0); MEAN PLATELET VOLUME 7.7 fL (7.2-11.7); MONO # 0.6 K/uL (0.0-0.8); MONO % 7.2 % (0.0-10.0); NEUT # 5.9 K/uL (1.8-7.0); NEUT % 67.1 % (50.0-75.0); NRBC % 0.1 % (0.0-2.0); RBC 4.22 Mil/uL (3.80-5.20); RED CELL DISTRIBUTION WIDTH 16.3 % (11.5-14.5); WHITE BLOOD COUNT 8.8 K/uL (4.8-10.8)
[2017-12-09 11:00] LABS: CALCIUM 9.2 mg/dl (8.6-10.4)
[2017-12-09 11:07] LABS: ALBUMIN 3.9 g/dL (3.5-5.0)
[2017-12-09 11:08] LABS: ALB/GLOB RATIO 1.3 (1.0-2.1)
[2017-12-09 11:17] LABS: INR 1.4
--- NOTE | 2017-12-09 11:23 | RAD ---
HISTORY: BED 12 COMPARISON: Chest radiographs 10/28/2017. FINDINGS: LUNGS: Linear atelectasis in the right base. No alveolitis bilaterally. PLEURA: No significant pleural effusion identified, no pneumothorax apparent. CARDIOVASCULAR: Cardiomegaly reiterated with large hiatal hernia again identified. OSSEOUS STRUCTURES: No significant abnormalities. VISUALIZED UPPER ABDOMEN: Normal. OTHER FINDINGS: None. IMPRESSION: No acute cardiopulmonary is appreciable. Large hiatal hernia reiterated. Linear atelectasis is appreciated at the inferior right lung zone.
--- NOTE | 2017-12-09 11:36 | CT ---
PROCEDURE: CT HEAD WITHOUT CONTRAST. HISTORY: AMS COMPARISON: None available. TECHNIQUE: Axial computed tomography images were obtained through the head/brain without intravenous contrast. Radiation dose: Total exam DLP = 873.05 mGy-cm. This CT exam was performed using one or more of the following dose reduction techniques: Automated exposure control, adjustment of the mA and/or kV according to patient size, and/or use of iterative reconstruction technique. FINDINGS: HEMORRHAGE: No intracranial hemorrhage. BRAIN: No mass effect or edema. No atrophy. Mild to moderate periventricular white matter lucency with patchy foci of deep and subcortical white matter lucency, consistent with chronic microvascular ischemic change. No evidence of acute infarct. Small old left caudate head lacunar infarct. VENTRICLES: Unremarkable. No hydrocephalus. CALVARIUM: Unremarkable. PARANASAL SINUSES: Unremarkable as visualized. No significant inflammatory changes. MASTOID AIR CELLS: Unremarkable as visualized. No inflammatory changes. OTHER FINDINGS: None. IMPRESSION: No intracranial mass, hemorrhage or evidence of acute infarct. Chronic white matter ischemic change. Otherwise unremarkable.
[2017-12-09 12:19] LABS: SQUAMOUS EPITHIAL 3 /hpf (0-5); URINE BACTERIA FEW (<OCC); URINE BILIRUBIN NEGATIVE (NEGATIVE); URINE BLOOD NEGATIVE (NEGATIVE); URINE CLARITY Hazy (Clear); URINE COLOR Yellow (YELLOW); URINE GLUCOSE (UA) NORMAL (Normal); URINE LEUKOCYTE ESTERASE TRACE Leu/uL (Negative); URINE PROTEIN NEGATIVE (NEGATIVE); URINE UROBILINOGEN NORMAL mg/dL (0.2-1.0)
[2017-12-09 13:03] VITALS: BP 111/66; PULSE 78; RESP 20; TEMP 98; O2SAT 97
--- NOTE | 2017-12-10 15:36 | CARD ---
APPROVED REPORT EKG Measurement Heart [id number] <Conclusion> Normal sinus rhythm Normal ECG
== END 2017-12-09 13:03 | disposition home or self-care (01) ==
LOC: C.ER 10:12
DX: R53.81 Other malaise (principal)